=== PATIENT | female | born 1965 | race Caucasian/White ===

== ENCOUNTER 2016-08-23 04:43 | Emergency (ER) | payer MEDICAID ==
[2016-08-23 04:59] VITALS: RESP 16
--- NOTE | 2016-08-23 05:02 | EDPHY ---
H & P Stated Complaint: Abd. pain HPI/ROS: HPI CHIEF COMPLAINT: I think I am having pancreatitis again HISTORY OF PRESENT ILLNESS: This patient is a 50-year-old female she does have significant past medical history for acute on chronic pancreatitis, upper GI bleed, recurrent urinary tract infections, she presents to the emergency room with epigastric abdominal pain that is tender palpation in her mid abdomen. She endorses nausea vomiting. Nonbilious nonbloody. She also tells me that she has had dysuria and urinary frequency she is concerned she may have pancreatitis again as well as a urinary tract infection. It is noted I did see and evaluate this patient in June she was admitted for urinary tract infection and acute on chronic pancreatitis. Past Medical History:Acute on chronic pancreatitis, recurrent urinary tract infection, upper GI bleed Past Surgical History: Cholecystectomy Social History: Denies use of alcohol drugs or tobacco products Family History: noncontributory ROS REVIEW OF SYSTEMS: A comprehensive 10 point review of systems is otherwise negative aside from elements mentioned in the history of present illness. Exam Constitutional triage nursing summary reviewed, vital signs reviewed, awake/ alert. Eyes normal conjunctivae and sclera, EOMI, PERRLA. HENT normal inspection, atraumatic, moist mucus membranes, no epistaxis, neck supple/ no meningismus, no raccoon eyes. Respiratory clear to auscultation bilaterally, normal breath sounds, no respiratory distress, no wheezing. Cardiovascular rate normal, regular rhythm, no murmur, no edema, distal pulses normal. Gastrointestinal soft, mild tenderness palpation epigastric region , no rebound, no guarding, normal bowel sounds, no distension, no pulsatile mass. Genitourinary no CVA tenderness. Musculoskeletal no midline vertebral tenderness, full range of motion, no calf swelling, no tenderness of extremities, no meningismus, good pulses, neurovascularly intact. Skin pink, warm, & dry, no rash, skin atraumatic. Neurologic awake, alert and oriented x 3, AAOx3, moves all 4 extremities equally, motor intact, sensory intact, CN II-XII intact, normal cerebellar, normal vision, normal speech. Psychiatric normal mood/affect. Heme/Lymph/Immune no lymphadenopathy. Differential diagnosis includes but is not limited to and in no particular order : acute on chronic pancreatitis, UTI Bowel obstruction, appendicitis, gallbladder disease, diverticulitis, colitis, enteritis, perforated viscus, gastritis, GERD, esophagitis, , pyelonephritis, kidney stones Medical Decision Making: This patient be placed on a full diagnostic cardiac sonographer, she will have an IV established, she will be hydrated with normal saline 1 L, 4 mg IV Zofran for nausea and 0.5 mg IV Dilaudid for pain control. We will obtain blood work including lipase, liver enzymes, white count. We will also obtain a urinalysis. Re-evaluation: 0640: Re-evaluation at this time this patient is resting comfortably or abdomen remained soft she is not vomiting she states she feels much better after IV fluids and pain medicine. Her blood work has been reviewed her lipase is in the 300 however this is normal for her. Urinalysis does indicate that she has a urinary tract infection. I did send a culture. She received IV Rocephin here and Macrobid for home. She does understand return emergency room if she develops any worsening symptoms questions or concerns includes worsening abdominal pain, fever, vomiting. Source: Patient - Personal History Current Tetanus/Diphtheria Vaccine: Yes Current Tetanus Diphtheria and Acellular Pertussis (TDAP): Yes Tetanus Vaccine Date: 2010 - Medical/Surgical History Hx Asthma: Yes Hx Chronic Respiratory Disease: No Hx Diabetes: No Hx Cardiac Disease: No Hx Renal Disease: No Hx Cirrhosis: No Hx Alcoholism: No Hx HIV/AIDS: No Hx Splenectomy or Spleen Trauma: No Other PMH: UTI, pyelonephritis, left cyst removal (ovary),. panceatitis- second to surgery, bile duct stent history; UGIB; cholecystectomy;GERD. - Social History Smoking Status: Never smoked Constitutional: Initial Vital Signs Temperature (C) 36.3 C 08/23/16 04:57 Heart Rate 76 08/23/16 04:57 Respiratory Rate 16 08/23/16 04:57 Blood Pressure 122/80 H 08/23/16 04:57 O2 Sat (%) 96 08/23/16 04:57 O2 Delivery Mode Room Air Allergies/Adverse Reactions: Penicillins Allergy (Severe, Verified 08/23/16 04:56) Dyspnea Sulfa (Sulfonamide Antibiotics) Allergy (Severe, Verified 08/23/16 04:56) Hives fentanyl Allergy (Intermediate, Verified 08/23/16 04:56) Other-Enter Comments ketorolac tromethamine [From Toradol] Allergy (Intermediate, Verified 08/23/16 04:56) Other-Enter Comments promethazine Allergy (Intermediate, Verified 08/23/16 04:56) Other-Enter Comments Home Medications: Medication Instructions Recorded Pantoprazole Sodium [Protonix 40mg 40 mg PO DAILY 10/08/15 (*)] Estradiol [Estrace Vaginal (*)] 1 tamra VG HS PRN 07/01/16 Lipase/Protease/Amylase [Creon 12 1 cap PO TIDMEAL 07/01/16 (*)] Prazosin HCl [Minipress 1mg (*)] 1 mg PO HS PRN 07/01/16 Sertraline HCl [Zoloft 100mg (*)] 100 mg PO HS PRN 07/01/16 Zolpidem Tartrate [Ambien 5MG (*)] 10 mg PO HS PRN 07/01/16 Nitrofurantoin Monohyd/M-Cryst 100 mg PO BID #10 capsule 07/03/16 [Macrobid 100 mg Capsule] Nitrofurantoin Monohyd/M-Cryst 100 mg PO BID #10 capsule 08/23/16 [Macrobid 100 mg Capsule] Medical Decision Making - Data Points Laboratory Results: Laboratory Results 08/23/16 05:00 08/23/16 05:15 08/23/16 08/23/16 08/23/16 05:15 05:00 04:55 WBC 5.79 10^3/uL (3.80-9.50) RBC 4.74 10^6/uL (4.18-5.33) Hgb 14.2 g/dL (12.6-16.3) Hct 41.8 % (38.0-47.0) MCV 88.2 fL (81.5-99.8) MCH 30.0 pg (27.9-34.1) MCHC 34.0 g/dL (32.4-36.7) RDW 13.0 % (11.5-15.2) Plt Count 265 10^3/uL (150-400) MPV 9.9 fL (8.7-11.7) Neut % (Auto) 56.5 % (39.3-74.2) Lymph % (Auto) 32.5 % (15.0-45.0) [place] % (Auto) 8.6 % (4.5-13.0) Eos % (Auto) 1.2 % (0.6-7.6) Baso % (Auto) 1.0 % (0.3-1.7) Nucleat RBC Rel Count 0.0 % (0.0-0.2) Absolute Neuts (auto) 3.27 10^3/uL (1.70-6.50) Absolute Lymphs (auto) 1.88 10^3/uL (1.00-3.00) Absolute Monos (auto) 0.50 10^3/uL (0.30-0.80) Absolute Eos (auto) 0.07 10^3/uL (0.03-0.40) Absolute Basos (auto) 0.06 10^3/uL (0.02-0.10) Absolute Nucleated RBC 0.00 10^3/uL (0-0.01) Immature Gran % 0.2 % (0.0-1.1) Immature Gran # 0.01 10^3/uL (0.00-0.10) Sodium 146 H mEq/L (134-144) Potassium 4.2 mEq/L (3.5-5.2) Chloride 108 mEq/L (97-110) Carbon Dioxide 24 mEq/l (22-31) Anion Gap 14 mEq/L (8-16) BUN 19 mg/dL (7-23) Creatinine 0.7 mg/dL (0.6-1.0) Estimated GFR > 60 Glucose 72 mg/dL (70-100) Calcium 10.0 mg/dL (8.5-10.4) Total Bilirubin 0.4 mg/dL (0.1-1.4) Conjugated Bilirubin 0.3 mg/dL (0.0-0.5) Unconjugated Bilirubin 0.1 mg/dL (0.0-1.1) AST 27 IU/L (14-46) ALT 37 IU/L (9-52) Alkaline Phosphatase 96 IU/L (38-126) Total Protein 7.4 g/dL (6.3-8.2) Albumin 4.0 g/dL (3.5-5.0) Lipase 334.0 H IU/L (23-300) Urine Color YELLOW Urine Appearance MODERATELY TURBID Urine pH 6.0 (5.0-7.5) Ur Specific [place] 1.025 (1.002-1.030) Urine Protein NEGATIVE (NEGATIVE) Urine Ketones NEGATIVE (NEGATIVE) Urine Blood NEGATIVE (NEGATIVE) Urine Nitrate NEGATIVE (NEGATIVE) Urine Bilirubin NEGATIVE (NEGATIVE) Urine Urobilinogen NEGATIVE EU (0.2-1.0) Ur Leukocyte Esterase 1+ H (NEGATIVE) Urine RBC 3-5 H /hpf (0-3) Urine WBC 5-10 H /hpf (0-3) Ur Epithelial Cells TRACE /lpf (NONE-1+) Calcium Oxalate Crystal PRESENT /hpf (NONE-1+) Urine Bacteria 3+ H /hpf (NONE SEEN) Hyaline Casts 1-5 /lpf (0-1) Urine Mucus 1+ /lpf (NONE-1+) Ur Culture Indicated? INDICATED H (NI) Urine Glucose NEGATIVE (NEGATIVE) Medications Given: Discontinued Medications Hydromorphone HCl (Dilaudid) 0.5 mg IVP EDNOW ONE Stop: 08/23/16 05:06 Last Admin: 08/23/16 05:20 Dose: 0.5 mg Hydromorphone HCl (Dilaudid) 0.5 mg IVP EDNOW ONE Stop: 08/23/16 06:05 Last Admin: 08/23/16 06:00 Dose: 0.5 mg Sodium Chloride (Ns) 1,000 mls @ 0 mls/hr IV ONCE ONE PRN Reason: Wide Open Stop: 08/23/16 05:06 Last Admin: 08/23/16 05:20 Dose: 1,000 mls Sodium Chloride (Ns) 1,000 mls @ 0 mls/hr IV ONCE ONE PRN Reason: Wide Open Stop: 08/23/16 06:29 Last Admin: 08/23/16 06:00 Dose: 1,000 mls Ondansetron HCl (Zofran) 4 mg IVP EDNOW ONE Stop: 08/23/16 05:06 Last Admin: 08/23/16 05:21 Dose: 4 mg Departure - Departure Disposition: Home, Routine, Self-Care Clinical Impression: Abdominal pain Qualifiers: Abdominal location: epigastric Qualifier Code: (R10.13) Epigastric pain UTI (urinary tract infection) Qualifiers: Urinary tract infection type: acute cystitis Hematuria presence: with hematuria Qualifier Code: (N30.01) Acute cystitis with hematuria Condition: Good Instructions: Urinary Tract Infection in Women (ED) Additional Instructions: 1. Stay well-hydrated drink lots of fluids. Do not eat or drink any spicy fatty greasy foods. 2. Return emergency room if he develops any worsening symptoms includes worsening abdominal pain, fever, vomiting. Referrals: NONE *PRIMARY CARE P,. [Primary Care Provider] - As per Instructions Prescriptions: Nitrofurantoin Monohyd/M-Cryst [Macrobid 100 mg Capsule] 100 mg PO BID #10 capsule
[2016-08-23] MEDS ORDERED: ONDANSETRON 4 MG/2 ML VIAL IVP ONE (05:05)
[2016-08-23] MEDS ORDERED: NS 1,000 ML IV ONE ×2 (05:05→06:28)
[2016-08-23] MEDS ORDERED: HYDROmorphONE/DILAUDID 1 MG/ML SYR IVP ONE ×2 (05:05→06:04)
[2016-08-23 05:22] LABS: COLOR YELLOW; LEUKOCYTE ESTERASE,URINE 1+ (NEGATIVE); NITRITE,URINE NEGATIVE (NEGATIVE)
[2016-08-23 05:40] LABS: % IMMATURE GRANULYOCYTES 0.2 % (0.0-1.1); ABSOLUTE IMMATURE GRANULOCYTES 0.01 10^3/uL (0.00-0.10); ADD DIFF? NO; ADD MORPH? NO; ADD SCAN? NO; ATYPICAL LYMPHOCYTE FLAG 10 (0-99); FRAGMENT RBC FLAG 0 (0-99); HEMATOCRIT 41.8 % (38.0-47.0); HEMOGLOBIN 14.2 g/dL (12.6-16.3); LEFT SHIFT FLG 0 (0-99); LIPEMIA HEMOLYSIS FLAG 90 (0-99); MEAN CELL VOLUME 88.2 fL (81.5-99.8); MEAN PLATELET VOLUME 9.9 fL (8.7-11.7); PLATELET CLUMPS FLAG 0 (0-99); PLATELET COUNT 265 10^3/uL (150-400); RED BLOOD CELL COUNT 4.74 10^6/uL (4.18-5.33)
[2016-08-23 05:50] LABS: BACTERIA 3+ /hpf (NONE SEEN); MUCUS 1+ /lpf (NONE-1+)
[2016-08-23 05:54] LABS: ALANINE AMINOTRANSFERASE 37 IU/L (9-52); ALKALINE PHOSPHATASE 96 IU/L (38-126); ANION GAP 14 mEq/L (8-16); ASPARTATE AMINOTRANSFERASE 27 IU/L (14-46); BILIRUBIN,TOTAL 0.4 mg/dL (0.1-1.4); BILIRUBIN-CONJUGATED 0.3 mg/dL (0.0-0.5); BILIRUBIN-UNCONJUGATED 0.1 mg/dL (0.0-1.1); CARBON DIOXIDE 24 mEq/l (22-31); CHLORIDE 108 mEq/L (97-110); CREATININE 0.7 mg/dL (0.6-1.0); GLOMERULAR FILTRATION RATE > 60; GLUCOSE 72 mg/dL (70-100); POTASSIUM 4.2 mEq/L (3.5-5.2); SODIUM 146 mEq/L (134-144); TOTAL PROTEIN 7.4 g/dL (6.3-8.2)
[2016-08-23] MEDS ORDERED: MAALOX/LIDO/HYOSC GI COCKTAIL 55 ML BOTTLE ONE (06:44)
[2016-08-23] MEDS ORDERED: MAALOX/LIDO/HYOSC GI COCKTAIL 55 ML BOTTLE PO ONE (06:46)
[2016-08-23 07:11] VITALS: BP 123/75; PULSE 74; TEMP 97.9; O2SAT 98
== END 2016-08-23 07:11 | disposition home or self-care (01) ==
DX: N30.01 Acute cystitis with hematuria (principal); B96.89 Other specified bacterial agents as the cause of diseases classified elsewhere; J45.909 Unspecified asthma, uncomplicated; Z90.49 Acquired absence of other specified parts of digestive tract
CPT/HCPCS: 96365; J0696; J1170

== ENCOUNTER 2017-02-22 22:03 | Emergency (ER) | payer MEDICAID ==
[2017-02-22 22:08] VITALS: TEMP 97.5
--- NOTE | 2017-02-22 22:10 | EDPHY ---
H & P Stated Complaint: UTI S/S X2 DAYS, PAIN IN ABD NOW, ALSO FLANK PAIN. #2: CAT SCRATCH LEFT EYE HPI/ROS: HPI CHIEF COMPLAINT: Multiple complaints HISTORY OF PRESENT ILLNESS: This patient 51-year-old female, significant past medical history for acute on chronic pancreatitis, recurrent urinary tract infection history of upper GI bleed presents to the emergency room with dysuria urinary frequency, additionally she states that she is having some upper abdominal pain consistent with her chronic pancreatitis. She does endorse nausea with 2 episodes of nonbilious nonbloody vomiting. Additionally she tells me her cat scratched her left upper eyelid at 4:00 a.m. additionally she tells me her tetanus shot is not up-to-date. She does have left upper eyelid swelling and pain due to where the cat scratched her. No globe injury. No trouble with her vision. Past Medical History: Acute on Pancreatitis, urinary tract infection, upper GI bleed Past Surgical History: Cholecystectomy Social History: Denies daily use of drugs alcohol tobacco products. Family History: Noncontributory ROS REVIEW OF SYSTEMS: A comprehensive 10 point review of systems is otherwise negative aside from elements mentioned in the history of present illness. Exam Constitutional triage nursing summary reviewed, vital signs reviewed, awake/ alert. Eyes left upper eyelid: Dry blood present, no globe injury, very mild upper left eyelid swelling. normal conjunctivae and sclera, EOMI, PERRLA. HENT normal inspection, atraumatic, moist mucus membranes, no epistaxis, neck supple/ no meningismus, no raccoon eyes. Respiratory clear to auscultation bilaterally, normal breath sounds, no respiratory distress, no wheezing. Cardiovascular rate normal, regular rhythm, no murmur, no edema, distal pulses normal. Gastrointestinal soft, non-tender, no rebound, no guarding, normal bowel sounds, no distension, no pulsatile mass. Genitourinary no CVA tenderness. Musculoskeletal no midline vertebral tenderness, full range of motion, no calf swelling, no tenderness of extremities, no meningismus, good pulses, neurovascularly intact. Skin pink, warm, & dry, no rash, skin atraumatic. Neurologic awake, alert and oriented x 3, AAOx3, moves all 4 extremities equally, motor intact, sensory intact, CN II-XII intact, normal cerebellar, normal vision, normal speech. Psychiatric normal mood/affect. Heme/Lymph/Immune no lymphadenopathy. Differential Diagnosis: Includes but is not limited to in a particular order acute pancreatitis, urinary tract infection, pyelonephritis, left upper eyelid laceration Medical Decision Making: Plan for this patient IV establishment, blood work, check lipase, urinalysis, IV fluids 0.5 mg IV Dilaudid for pain control, clean the dry blood off of the left upper eyelid. Re-evaluation: 2321: This patient's left upper eyelid was cleaned. She does have a horizontally oriented 3 cm laceration to the upper eyelid. It is not gaping open. It does not involve the lid margin. I do not appreciate dissecting a duct either. This patient need to be started on antibiotics for cat scratch. She will need close ophthalmology follow-up. I have given her strict return precautions about this getting infected this includes worsening swelling, redness, pain, drainage. She understands. Blood work reviewed. No indication of acute pancreatitis. Urinalysis does show leukocyte Estrace. I did send for urine culture. I did give her 1 g of Rocephin. Only reason why I am treating this urinalysis which is minimally infected is that patient says she is dysuria and symptoms. Additionally explained that she needs to follow up with Ophthalmology about the scratch to her left eyelid. Watch the eyelid closely for infection. Start on doxycycline which will hopefully cover her urine as well as her eyelid prevented of care for infection given that the cat scratched her. I am unable to suture this closed because it has been open for over 16 hours. Additionally it is not gaping. Additionally it is a cat scratch. Recommend close follow-up management with Ophthalmology. It is not through and through the eyelid. There is no globe involvement. There is no eyelid age involvement or gland involvement. Source: Patient - Personal History LMP (Females 10-55): Unknown Current Tetanus/Diphtheria Vaccine: Yes Tetanus Vaccine Date: 2010 - Medical/Surgical History Hx Asthma: Yes Hx Chronic Respiratory Disease: No Hx Diabetes: No Hx Cardiac Disease: No Hx Renal Disease: No Hx Cirrhosis: No Hx Alcoholism: No Hx HIV/AIDS: No Hx Splenectomy or Spleen Trauma: No Other PMH: UTI, pyelonephritis, left cyst removal (ovary),. panceatitis- second to surgery, bile duct stent history; UGIB; cholecystectomy;GERD, ? POST MENOPAUSAL. - Social History Smoking Status: Never smoked Constitutional: Initial Vital Signs Temperature (C) 36.4 C 02/22/17 22:04 Heart Rate 100 02/22/17 22:04 Respiratory Rate 20 02/22/17 22:04 Blood Pressure 105/84 H 02/22/17 22:04 O2 Sat (%) 97 02/22/17 22:04 O2 Delivery Mode Room Air Allergies/Adverse Reactions: Penicillins Allergy (Severe, Verified 02/22/17 22:08) Dyspnea Sulfa (Sulfonamide Antibiotics) Allergy (Severe, Verified 02/22/17 22:08) Hives fentanyl Allergy (Intermediate, Verified 02/22/17 22:08) Other-Enter Comments ketorolac tromethamine [From Toradol] Allergy (Intermediate, Verified 02/22/17 22:08) Other-Enter Comments promethazine Allergy (Intermediate, Verified 02/22/17 22:08) Other-Enter Comments Home Medications: Medication Instructions Recorded Sertraline HCl [Zoloft 100mg (*)] 100 mg PO HS PRN 07/01/16 Zolpidem Tartrate [Ambien 5MG (*)] 10 mg PO HS PRN 07/01/16 Doxycycline Hyclate 100 mg PO BID #14 tablet 02/23/17 Medical Decision Making - Data Points Laboratory Results: Laboratory Results 02/22/17 22:35 02/22/17 22:35 02/22/17 02/22/17 02/22/17 23:30 22:35 22:35 WBC 7.17 10^3/uL 10^3/uL (3.80-9.50) RBC 4.91 10^6/uL 10^6/uL (4.18-5.33) Hgb 14.7 g/dL g/dL (12.6-16.3) Hct 44.1 % % (38.0-47.0) MCV 89.8 fL fL (81.5-99.8) MCH 29.9 pg pg (27.9-34.1) MCHC 33.3 g/dL g/dL (32.4-36.7) RDW 13.7 % % (11.5-15.2) Plt Count 284 10^3/uL 10^3/uL (150-400) MPV 9.8 fL fL (8.7-11.7) Neut % (Auto) 62.2 % % (39.3-74.2) Lymph % (Auto) 28.3 % % (15.0-45.0) [place] % (Auto) 7.8 % % (4.5-13.0) Eos % (Auto) 0.8 % % (0.6-7.6) Baso % (Auto) 0.8 % % (0.3-1.7) Nucleat RBC Rel Count 0.0 % % (0.0-0.2) Absolute Neuts (auto) 4.45 10^3/uL 10^3/uL (1.70-6.50) Absolute Lymphs (auto) 2.03 10^3/uL 10^3/uL (1.00-3.00) Absolute Monos (auto) 0.56 10^3/uL 10^3/uL (0.30-0.80) Absolute Eos (auto) 0.06 10^3/uL 10^3/uL (0.03-0.40) Absolute Basos (auto) 0.06 10^3/uL 10^3/uL (0.02-0.10) Absolute Nucleated RBC 0.00 10^3/uL 10^3/uL (0-0.01) Immature Gran % 0.1 % % (0.0-1.1) Immature Gran # 0.01 10^3/uL 10^3/uL (0.00-0.10) Sodium 140 mEq/L mEq/L (134-144) Potassium 4.2 mEq/L mEq/L (3.5-5.2) Chloride 105 mEq/L mEq/L (97-110) Carbon Dioxide 22 mEq/l mEq/l (22-31) Anion Gap 13 mEq/L mEq/L (8-16) BUN 17 mg/dL mg/dL (7-23) Creatinine 0.7 mg/dL mg/dL (0.6-1.0) Estimated GFR > 60 Glucose 99 mg/dL mg/dL (70-100) Calcium 9.8 mg/dL mg/dL (8.5-10.4) Total Bilirubin 0.3 mg/dL mg/dL (0.1-1.4) Conjugated Bilirubin 0.3 mg/dL mg/dL (0.0-0.5) Unconjugated Bilirubin 0.0 mg/dL mg/dL (0.0-1.1) AST 101 IU/L H IU/L (14-46) ALT 106 IU/L H IU/L (9-52) Alkaline Phosphatase 112 IU/L IU/L (38-126) Total Protein 7.1 g/dL g/dL (6.3-8.2) Albumin 4.3 g/dL g/dL (3.5-5.0) Lipase 206.0 IU/L IU/L (23-300) Urine Color YELLOW Urine Appearance CLEAR Urine pH 6.0 (5.0-7.5) Ur Specific [place] 1.015 (1.002-1.030) Urine Protein NEGATIVE (NEGATIVE) Urine Ketones NEGATIVE (NEGATIVE) Urine Blood NEGATIVE (NEGATIVE) Urine Nitrate NEGATIVE (NEGATIVE) Urine Bilirubin NEGATIVE (NEGATIVE) Urine Urobilinogen NEGATIVE EU EU (0.2-1.0) Ur Leukocyte Esterase TRACE H (NEGATIVE) Urine RBC 1-3 /hpf /hpf (0-3) Urine WBC 1-3 /hpf /hpf (0-3) Ur Epithelial Cells TRACE /lpf /lpf (NONE-1+) Urine Mucus TRACE /lpf /lpf (NONE-1+) Urine Glucose NEGATIVE (NEGATIVE) Medications Given: Discontinued Medications Diphtheria/Tetanus/Acell Pertussis (Boostrix) 0.5 ml IM .ONCE ONE Stop: 02/22/17 22:22 Last Admin: 02/22/17 22:35 Dose: 0.5 ml Doxycycline Hyclate (Doxycycline Hyclate) 100 mg PO EDNOW ONE PRN Reason: Protocol Stop: 02/22/17 23:35 Last Admin: 02/23/17 00:19 Dose: 100 mg Hydromorphone HCl (Dilaudid) 0.5 mg IVP EDNOW ONE Stop: 02/22/17 22:21 Last Admin: 02/22/17 22:34 Dose: 0.5 mg Hydromorphone HCl (Dilaudid) 0.5 mg IVP EDNOW ONE Stop: 02/22/17 23:34 Last Admin: 02/22/17 23:43 Dose: 0.5 mg Sodium Chloride (Ns) 1,000 mls @ 0 mls/hr IV EDNOW ONE; Wide Open PRN Reason: Protocol Stop: 02/22/17 22:21 Last Admin: 02/22/17 22:33 Dose: 1,000 mls Ceftriaxone Sodium/Dextrose (Rocephin 1 Gm (Premix)) 50 mls @ 100 mls/hr IV EDNOW ONE PRN Reason: Protocol Stop: 02/23/17 00:23 Last Admin: 02/23/17 00:20 Dose: 50 mls Ondansetron HCl (Zofran) 4 mg IVP EDNOW ONE Stop: 02/22/17 22:21 Last Admin: 02/22/17 22:35 Dose: 4 mg Ondansetron HCl (Zofran) 4 mg IVP EDNOW ONE Stop: 02/22/17 23:34 Last Admin: 02/22/17 23:43 Dose: 4 mg Departure - Departure Disposition: Home, Routine, Self-Care Clinical Impression: Infected eye lid UTI (urinary tract infection) Qualifiers: Urinary tract infection type: acute cystitis Hematuria presence: without hematuria Qualified Code(s): N30.00 - Acute cystitis without hematuria Condition: Good Instructions: Laceration (ED), Cat Scratch Disease (ED), Urinary Tract Infection in Women (ED) Additional Instructions: 1. Please watch her upper eyelid closely for infection this includes worsening swelling, redness, drainage. 2. You should be followed up with Ophthalmology closely about this. Please see them in the next 24 hours. Call them for an appointment. 3. Take antibiotics as prescribed. Referrals: NONE *PRIMARY CARE P,. [Primary Care Provider] - As per Instructions Brittanie Ragland MD [Non Staff Provider ()] - As per Instructions Prescriptions: Doxycycline Hyclate 100 mg PO BID #14 tablet
[2017-02-22] MEDS ORDERED: HYDROmorphONE/DILAUDID 1 MG/ML SYR IVP ONE ×2 (22:20→23:33)
[2017-02-22] MEDS ORDERED: NS 1,000 ML IV ONE (22:20)
[2017-02-22] MEDS ORDERED: ONDANSETRON 4 MG/2 ML VIAL IVP ONE ×2 (22:20→23:33)
[2017-02-22] MEDS ORDERED: TDAP ADULT 0.5 ML INJ (BOOSTRIX) IM ONE (22:21)
[2017-02-22 23:09] LABS: % IMMATURE GRANULYOCYTES 0.1 % (0.0-1.1); ABSOLUTE IMMATURE GRANULOCYTES 0.01 10^3/uL (0.00-0.10); ADD DIFF? NO; ADD MORPH? NO; ADD SCAN? NO; ATYPICAL LYMPHOCYTE FLAG 0 (0-99); FRAGMENT RBC FLAG 0 (0-99); HEMATOCRIT 44.1 % (38.0-47.0); HEMOGLOBIN 14.7 g/dL (12.6-16.3); LEFT SHIFT FLG 0 (0-99); LIPEMIA HEMOLYSIS FLAG 80 (0-99); MEAN CELL HEMOGLOBIN 29.9 pg (27.9-34.1); MEAN CELL HEMOGLOBIN CONCENTR. 33.3 g/dL (32.4-36.7); MEAN CELL VOLUME 89.8 fL (81.5-99.8); MEAN PLATELET VOLUME 9.8 fL (8.7-11.7); PLATELET CLUMPS FLAG 0 (0-99); PLATELET COUNT 284 10^3/uL (150-400); RED BLOOD CELL COUNT 4.91 10^6/uL (4.18-5.33); RED CELL DISTRIBUTION WIDTH 13.7 % (11.5-15.2)
[2017-02-22 23:22] LABS: ALANINE AMINOTRANSFERASE 106 IU/L (9-52); ALBUMIN 4.3 g/dL (3.5-5.0); ALKALINE PHOSPHATASE 112 IU/L (38-126); ANION GAP 13 mEq/L (8-16); ASPARTATE AMINOTRANSFERASE 101 IU/L (14-46); BILIRUBIN,TOTAL 0.3 mg/dL (0.1-1.4); BILIRUBIN-CONJUGATED 0.3 mg/dL (0.0-0.5); CALCIUM 9.8 mg/dL (8.5-10.4); CARBON DIOXIDE 22 mEq/l (22-31); CHLORIDE 105 mEq/L (97-110); CREATININE 0.7 mg/dL (0.6-1.0); GLOMERULAR FILTRATION RATE > 60; GLUCOSE 99 mg/dL (70-100); POTASSIUM 4.2 mEq/L (3.5-5.2); SODIUM 140 mEq/L (134-144); TOTAL PROTEIN 7.1 g/dL (6.3-8.2)
[2017-02-22] MEDS ORDERED: DOXYCYCLINE HYCLATE 100 MG CAP/TAB PO ONE (23:34)
[2017-02-22] MEDS ORDERED: DOXYCYCLINE 100 MG PREPACK#2 BTL TAKEHOME ONE (23:34)
[2017-02-22 23:39] LABS: COLOR YELLOW; LEUKOCYTE ESTERASE,URINE TRACE (NEGATIVE); NITRITE,URINE NEGATIVE (NEGATIVE)
[2017-02-22 23:48] LABS: MUCUS TRACE /lpf (NONE-1+)
[2017-02-23 00:52] VITALS: BP 124/87; PULSE 86; RESP 16; O2SAT 94
== END 2017-02-23 01:05 | disposition home or self-care (01) ==
DX: H01.9 Unspecified inflammation of eyelid (principal); N30.00 Acute cystitis without hematuria; B96.89 Other specified bacterial agents as the cause of diseases classified elsewhere; J45.909 Unspecified asthma, uncomplicated; E86.9 Volume depletion, unspecified; Z23 Encounter for immunization; W55.03XA Scratched by cat, initial encounter
CPT/HCPCS: 96365; J0696; J1170; J2405

== ENCOUNTER 2017-05-07 21:47 | Emergency (ER) | payer MEDICAID ==
[2017-05-07] MEDS ORDERED: NS 1,000 ML IV ONE (22:04)
--- NOTE | 2017-05-07 22:04 | EDPHY ---
H & P Stated Complaint: abd pain, painful urination, back pain HPI/ROS: HPI CHIEF COMPLAINT: Abdominal pain, dysuria HISTORY OF PRESENT ILLNESS: Patient very pleasant 51-year-old female she has significant past medical history for chronic pancreatitis, chronic urinary tract infections and chronic abdominal pain she presents emergency room with dysuria. States x1 day. With associated nausea vomiting. Upper epigastric abdominal pain. She denies any chest pain shortness of breath or fever. States she decided come the emergency room if she thinks she may be having a urinary tract infection or pancreatitis. Past Medical History: Urinary tract infection, pancreatitis Past Surgical History: Cholecystectomy Social History: Denies daily use drugs alcohol tobacco products. Family History: Noncontributory ROS REVIEW OF SYSTEMS: A comprehensive 10 point review of systems is otherwise negative aside from elements mentioned in the history of present illness. Exam Constitutional appears well nontoxic, triage nursing summary reviewed, vital signs reviewed, awake/alert. Eyes normal conjunctivae and sclera, EOMI, PERRLA. HENT normal inspection, atraumatic, moist mucus membranes, no epistaxis, neck supple/ no meningismus, no raccoon eyes. Respiratory clear to auscultation bilaterally, normal breath sounds, no respiratory distress, no wheezing. Cardiovascular rate normal, regular rhythm, no murmur, no edema, distal pulses normal. Gastrointestinal soft, very mild tenderness palpation epigastric , no rebound , no guarding, normal bowel sounds, no distension, no pulsatile mass. Genitourinary no CVA tenderness. Musculoskeletal no midline vertebral tenderness, full range of motion, no calf swelling, no tenderness of extremities, no meningismus, good pulses, neurovascularly intact. Skin pink, warm, & dry, no rash, skin atraumatic. Neurologic awake, alert and oriented x 3, AAOx3, moves all 4 extremities equally, motor intact, sensory intact, CN II-XII intact, normal cerebellar, normal vision, normal speech. Psychiatric normal mood/affect. Heme/Lymph/Immune no lymphadenopathy. Differential diagnosis includes but is not limited to and in no particular order : Bowel obstruction, appendicitis, gallbladder disease, diverticulitis, colitis , enteritis, perforated viscus, gastritis, GERD, esophagitis, urinary tract infection, pyelonephritis, kidney stones Medical Decision Making: Plan for this patient IV established with IV fluid bolus, Zofran for nausea, 1 mg for Dilaudid pain control, check lipase, check LFTs, check urinalysis and re-evaluate. Re-evaluation: 2257: Re-evaluation at this time. Resting comfortably no acute distress. Abdomen soft. Not vomiting. Blood work is reassuring. Normal lipase. UA unremarkable. She feels comfortable going home. I did give her return precautions she understands return emergency room if develops worsening abdominal pain fever vomiting. Clinically on exam her abdomen is soft nontender no guarding or peritoneal signs. Source: Patient - Personal History LMP (Females 10-55): Post Menopausal Tetanus Vaccine Date: 2016 - Medical/Surgical History Hx Asthma: Yes Hx Chronic Respiratory Disease: No Hx Diabetes: No Hx Cardiac Disease: No Hx Renal Disease: No Hx Cirrhosis: No Hx Alcoholism: No Hx HIV/AIDS: No Hx Splenectomy or Spleen Trauma: No Other PMH: UTI, pyelonephritis, left cyst removal (ovary),. panceatitis- second to surgery, bile duct stent history; UGIB; cholecystectomy;GERD, ? POST MENOPAUSAL. - Social History Smoking Status: Never smoked Constitutional: Initial Vital Signs Heart Rate 90 05/07/17 21:52 Respiratory Rate 20 05/07/17 21:52 Blood Pressure 118/71 05/07/17 21:52 O2 Sat (%) 98 05/07/17 21:52 O2 Delivery Mode Room Air O2 (L/minute) 2 Allergies/Adverse Reactions: Penicillins Allergy (Severe, Verified 05/07/17 21:52) Dyspnea Sulfa (Sulfonamide Antibiotics) Allergy (Severe, Verified 05/07/17 21:52) Hives fentanyl Allergy (Intermediate, Verified 05/07/17 21:52) Other-Enter Comments ketorolac tromethamine [From Toradol] Allergy (Intermediate, Verified 05/07/17 21:52) Other-Enter Comments promethazine Allergy (Intermediate, Verified 05/07/17 21:52) Other-Enter Comments Home Medications: Medication Instructions Recorded Sertraline HCl [Zoloft 100mg (*)] 100 mg PO HS PRN 07/01/16 Zolpidem Tartrate [Ambien 5MG (*)] 10 mg PO HS PRN 07/01/16 Doxycycline Hyclate 100 mg PO BID #14 tablet 02/23/17 Medical Decision Making - Data Points Laboratory Results: Laboratory Results 05/07/17 22:10 10/20/17 22:10 05/07/17 05/07/17 05/07/17 22:10 22:10 21:50 WBC 6.19 10^3/uL 10^3/uL (3.80-9.50) RBC 4.70 10^6/uL 10^6/uL (4.18-5.33) Hgb 13.9 g/dL g/dL (12.6-16.3) Hct 41.5 % % (38.0-47.0) MCV 88.3 fL fL (81.5-99.8) MCH 29.6 pg pg (27.9-34.1) MCHC 33.5 g/dL g/dL (32.4-36.7) RDW 12.9 % % (11.5-15.2) Plt Count 251 10^3/uL 10^3/uL (150-400) MPV 9.7 fL fL (8.7-11.7) Neut % (Auto) 55.9 % % (39.3-74.2) Lymph % (Auto) 34.7 % % (15.0-45.0) [place] % (Auto) 6.9 % % (4.5-13.0) Eos % (Auto) 1.3 % % (0.6-7.6) Baso % (Auto) 1.0 % % (0.3-1.7) Nucleat RBC Rel Count 0.0 % % (0.0-0.2) Absolute Neuts (auto) 3.46 10^3/uL 10^3/uL (1.70-6.50) Absolute Lymphs (auto) 2.15 10^3/uL 10^3/uL (1.00-3.00) Absolute Monos (auto) 0.43 10^3/uL 10^3/uL (0.30-0.80) Absolute Eos (auto) 0.08 10^3/uL 10^3/uL (0.03-0.40) Absolute Basos (auto) 0.06 10^3/uL 10^3/uL (0.02-0.10) Absolute Nucleated RBC 0.00 10^3/uL 10^3/uL (0-0.01) Immature Gran % 0.2 % % (0.0-1.1) Immature Gran # 0.01 10^3/uL 10^3/uL (0.00-0.10) Sodium 143 mEq/L mEq/L (134-144) Potassium 4.5 mEq/L mEq/L (3.5-5.2) Chloride 105 mEq/L mEq/L (97-110) Carbon Dioxide 21 mEq/l L mEq/l (22-31) Anion Gap 17 mEq/L H mEq/L (8-16) BUN 23 mg/dL mg/dL (7-23) Creatinine 0.7 mg/dL mg/dL (0.6-1.0) Estimated GFR > 60 Glucose 118 mg/dL H mg/dL (70-100) Calcium 9.6 mg/dL mg/dL (8.5-10.4) Total Bilirubin 0.4 mg/dL mg/dL (0.1-1.4) Conjugated Bilirubin 0.3 mg/dL mg/dL (0.0-0.5) Unconjugated Bilirubin 0.1 mg/dL mg/dL (0.0-1.1) AST 27 IU/L IU/L (14-46) ALT 22 IU/L IU/L (9-52) Alkaline Phosphatase 82 IU/L IU/L (38-126) Total Protein 6.6 g/dL g/dL (6.3-8.2) Albumin 3.9 g/dL g/dL (3.5-5.0) Lipase 283 IU/L IU/L (23-300) Urine Color YELLOW Urine Appearance CLEAR Urine pH 5.0 (5.0-7.5) Ur Specific [place] 1.024 (1.002-1.030) Urine Protein NEGATIVE (NEGATIVE) Urine Ketones NEGATIVE (NEGATIVE) Urine Blood NEGATIVE (NEGATIVE) Urine Nitrate NEGATIVE (NEGATIVE) Urine Bilirubin NEGATIVE (NEGATIVE) Urine Urobilinogen NEGATIVE EU EU (0.2-1.0) Ur Leukocyte Esterase NEGATIVE (NEGATIVE) Urine Glucose NEGATIVE (NEGATIVE) Medications Given: Hydromorphone HCl (Dilaudid) 1 mg IVP Q4HRS PRN PRN Reason: Pain, Severe Unable to Take PO Stop: 05/17/17 22:08 Last Admin: 05/07/17 22:15 Dose: 1 mg Discontinued Medications Sodium Chloride (Ns) 1,000 mls @ 0 mls/hr IV EDNOW ONE; Wide Open PRN Reason: Protocol Stop: 05/07/17 22:05 Last Admin: 05/07/17 22:14 Dose: 1,000 mls Ondansetron HCl (Zofran) 4 mg IVP EDNOW ONE Stop: 05/07/17 22:16 Last Admin: 05/07/17 22:16 Dose: 4 mg Departure - Departure Disposition: Home, Routine, Self-Care Clinical Impression: Abdominal pain Condition: Good Instructions: Acute Abdominal Pain (ED) Additional Instructions: 1. Return emergency room if develops worsening abdominal pain fever vomiting. 2. Cherry diet next 24-48 hours. 3. Return emergency room if worsening symptoms questions or concerns. Referrals: NONE *PRIMARY CARE P,. [Primary Care Provider] - As per Instructions
[2017-05-07] MEDS ORDERED: HYDROmorphONE/DILAUDID 1 MG/ML INJ IVP PRN (22:09)
[2017-05-07 22:12] LABS: COLOR YELLOW; LEUKOCYTE ESTERASE,URINE NEGATIVE (NEGATIVE); NITRITE,URINE NEGATIVE (NEGATIVE)
[2017-05-07] MEDS ORDERED: ONDANSETRON 4 MG/2 ML VIAL ONE (22:12)
[2017-05-07] MEDS ORDERED: ONDANSETRON 4 MG/2 ML VIAL IVP ONE (22:15)
[2017-05-07 22:20] VITALS: O2SAT 97
[2017-05-07 22:22] LABS: % IMMATURE GRANULYOCYTES 0.2 % (0.0-1.1); ABSOLUTE IMMATURE GRANULOCYTES 0.01 10^3/uL (0.00-0.10); ADD DIFF? NO; ADD MORPH? NO; ADD SCAN? NO; ATYPICAL LYMPHOCYTE FLAG 10 (0-99); FRAGMENT RBC FLAG 0 (0-99); HEMATOCRIT 41.5 % (38.0-47.0); HEMOGLOBIN 13.9 g/dL (12.6-16.3); LEFT SHIFT FLG 0 (0-99); LIPEMIA HEMOLYSIS FLAG 80 (0-99); MEAN CELL HEMOGLOBIN 29.6 pg (27.9-34.1); MEAN CELL HEMOGLOBIN CONCENTR. 33.5 g/dL (32.4-36.7); MEAN CELL VOLUME 88.3 fL (81.5-99.8); MEAN PLATELET VOLUME 9.7 fL (8.7-11.7); PLATELET CLUMPS FLAG 30 (0-99); PLATELET COUNT 251 10^3/uL (150-400); RED CELL DISTRIBUTION WIDTH 12.9 % (11.5-15.2)
[2017-05-07 22:41] LABS: ALANINE AMINOTRANSFERASE 22 IU/L (9-52); ALBUMIN 3.9 g/dL (3.5-5.0); ALKALINE PHOSPHATASE 82 IU/L (38-126); ANION GAP 17 mEq/L (8-16); ASPARTATE AMINOTRANSFERASE 27 IU/L (14-46); BILIRUBIN,TOTAL 0.4 mg/dL (0.1-1.4); BILIRUBIN-CONJUGATED 0.3 mg/dL (0.0-0.5); BILIRUBIN-UNCONJUGATED 0.1 mg/dL (0.0-1.1); CALCIUM 9.6 mg/dL (8.5-10.4); CARBON DIOXIDE 21 mEq/l (22-31); CHLORIDE 105 mEq/L (97-110); CREATININE 0.7 mg/dL (0.6-1.0); GLOMERULAR FILTRATION RATE > 60; GLUCOSE 118 mg/dL (70-100); POTASSIUM 4.5 mEq/L (3.5-5.2); SODIUM 143 mEq/L (134-144); TOTAL PROTEIN 6.6 g/dL (6.3-8.2)
[2017-05-07 23:05] VITALS: BP 127/72; PULSE 78; RESP 16; TEMP 98.1
== END 2017-05-07 23:05 | disposition home or self-care (01) ==
DX: R10.13 Epigastric pain (principal); J45.909 Unspecified asthma, uncomplicated; E86.9 Volume depletion, unspecified; Z90.49 Acquired absence of other specified parts of digestive tract
CPT/HCPCS: 96374; J1170; J2405

== ENCOUNTER 2017-06-20 23:24 | Emergency (ER) | payer MEDICAID ==
[2017-06-20] MEDS ORDERED: NS 1,000 ML IV ONE (23:59)
[2017-06-20] MEDS ORDERED: ONDANSETRON 4 MG/2 ML VIAL IVP ONE (23:59)
[2017-06-20] MEDS ORDERED: FAMOTIDINE 20 MG/NACL 50 ML IV ONE (23:59)
[2017-06-21] MEDS ORDERED: ONDANSETRON 4 MG/2 ML VIAL ONE
[2017-06-21] MEDS ORDERED: HYDROmorphONE/DILAUDID 1 MG/ML INJ IVP ONE
--- NOTE | 2017-06-21 00:04 | EDPHY ---
H & P Time Seen by Provider: 06/20/17 23:41 HPI/ROS: HPI Abdominal pain, flank pain, vomiting. 51-year-old female by private vehicle. She has been seen in our emergency department multiple times in the past for the same above complaints. She states that for the last 2 days she has had left upper to mid abdominal pain described as crampy with radiation to the left flank. She denies any pain with urination. No gross hematuria. No increased frequency or dysuria. She has not had a fever. She reports that she has had this same pain multiple times in the past. She reports having a history of pancreatitis and urinary tract infections. She reports she has been vomiting today but has been able to keep some liquids down this evening. ROS: Constitutional: No fever, no chills. No weakness. Eyes: No discharge. No changes in vision. ENT: No sore throat. No nasal congestion or rhinorrhea. Respiratory: No cough. No shortness of breath. Cardiac: No chest pain, no palpitations. Gastrointestinal: As above, no diarrhea. Genitourinary: No hematuria. No dysuria or increased frequency with urination. Musculoskeletal: As above. No neck pain. No myalgias or arthralgias. Skin: No rashes. Neurological: No headache. No focal weakness or altered sensation. Past medical history: Upper GI bleed, pancreatitis, cholecystectomy, frequent urinary tract infections. Social history: Here by herself. Denies alcohol. Denies smoking. No IV drugs or street drugs. Physical Exam: General Appearance: Alert, she does not appear to be in distress. This patient is responding to questions appropriately and in full sentences. This patient appears well-hydrated and well-nourished. Eyes: Pupils equal and round no pallor or injection. No lid edema, erythema or injection. ENT, Mouth: Mucous membranes are moist. The pharyngeal tissues are unremarkable. No edema or swelling. No asymmetry suggestive of abscess. No erythema or exudates. Respiratory: There are no retractions, lungs are clear to auscultation with good air movement bilaterally. Cardiovascular: Regular rate and rhythm. No murmur. Gastrointestinal: Abdomen is soft with vague and mild epigastric and left upper quadrant tenderness on palpation, no masses, bowel sounds normal. No focal tenderness at McBurney's point. No Marie sign. Neurological: Motor sensory function is grossly intact. Cranial nerves are normal. Gait is normal. Skin: Warm and dry, no rashes. Musculoskeletal: No CVA tenderness on palpation bilaterally. Extremities are symmetrical. All joints range without pain or impingement. Psychiatric: No agitation. No depression. Database: EKG: Imaging: Procedures: Emergency department course: Vital signs reviewed. IV placed. She was started on IV normal saline with 1 L to be given over the next hour. She has provided us with a urine sample. She will be given 4 mg of IV Zofran and 20 mg of IV Pepcid as well as 0.5 mg of IV hydromorphone for her pain. 1:15 a.m., patient re-evaluated. Resting comfortably at this time. She states that she feels much better. Her vital signs were reviewed and are normal. Repeat abdominal exam she is soft, nontender nondistended. No significant CVA tenderness on palpation. I discussed the results of her urinalysis and blood work with her. She is taking oral fluids. She has a few red blood cells on her urinalysis but no indication of infection. I will not start antibiotics at this time. She will follow up with her primary care physician in 1-2 days for re-evaluation and repeat urinalysis. Return to emergency department precautions have been discussed with her. All of her questions were answered. She was discharged in good condition. Differential Diagnosis: The differential diagnosis on this patient includes but is not limited to chronic abdominal pain, cyclic vomiting syndrome, urinary tract infection. Perforated peptic ulcer, pancreatitis, cholecystitis, pyelonephritis unlikely. This represents a partial list of diagnoses considered. These considerations are based on history, physical exam, past history, reassessment and diagnostic testing. Smoking Status: Never smoked Constitutional: Initial Vital Signs Temperature (C) 37.0 C 06/20/17 23:36 Heart Rate 104 H 06/20/17 23:36 Respiratory Rate 14 06/20/17 23:36 Blood Pressure 97/71 L 06/20/17 23:36 O2 Sat (%) 97 06/20/17 23:36 O2 Delivery Mode Room Air Allergies/Adverse Reactions: Penicillins Allergy (Severe, Verified 05/07/17 21:52) Dyspnea Sulfa (Sulfonamide Antibiotics) Allergy (Severe, Verified 05/07/17 21:52) Hives fentanyl Allergy (Intermediate, Verified 05/07/17 21:52) Other-Enter Comments ketorolac tromethamine [From Toradol] Allergy (Intermediate, Verified 05/07/17 21:52) Other-Enter Comments promethazine Allergy (Intermediate, Verified 05/07/17 21:52) Other-Enter Comments Home Medications: Medication Instructions Recorded Zolpidem Tartrate [Ambien 5MG (*)] 10 mg PO HS PRN 07/01/16 Ondansetron Odt [Zofran Odt 4 mg 4 mg PO Q4PRN PRN #10 tab 06/21/17 (*)] Medical Decision Making - Data Points Laboratory Results: Laboratory Results 06/21/17 00:20 06/21/17 00:20 06/21/17 06/21/17 06/21/17 00:20 00:20 00:20 WBC 5.35 10^3/uL 10^3/uL (3.80-9.50) RBC 4.33 10^6/uL 10^6/uL (4.18-5.33) Hgb 13.0 g/dL g/dL (12.6-16.3) Hct 38.0 % % (38.0-47.0) MCV 87.8 fL fL (81.5-99.8) MCH 30.0 pg pg (27.9-34.1) MCHC 34.2 g/dL g/dL (32.4-36.7) RDW 13.2 % % (11.5-15.2) Plt Count 250 10^3/uL 10^3/uL (150-400) MPV 9.9 fL fL (8.7-11.7) Neut % (Auto) 57.0 % % (39.3-74.2) Lymph % (Auto) 31.6 % % (15.0-45.0) [place] % (Auto) 8.6 % % (4.5-13.0) Eos % (Auto) 1.9 % % (0.6-7.6) Baso % (Auto) 0.7 % % (0.3-1.7) Nucleat RBC Rel Count 0.0 % % (0.0-0.2) Absolute Neuts (auto) 3.05 10^3/uL 10^3/uL (1.70-6.50) Absolute Lymphs (auto) 1.69 10^3/uL 10^3/uL (1.00-3.00) Absolute Monos (auto) 0.46 10^3/uL 10^3/uL (0.30-0.80) Absolute Eos (auto) 0.10 10^3/uL 10^3/uL (0.03-0.40) Absolute Basos (auto) 0.04 10^3/uL 10^3/uL (0.02-0.10) Absolute Nucleated RBC 0.00 10^3/uL 10^3/uL (0-0.01) Immature Gran % 0.2 % % (0.0-1.1) Immature Gran # 0.01 10^3/uL 10^3/uL (0.00-0.10) Sodium 145 mEq/L H mEq/L (134-144) Potassium 4.0 mEq/L mEq/L (3.5-5.2) Chloride 107 mEq/L mEq/L (97-110) Carbon Dioxide 24 mEq/l mEq/l (22-31) Anion Gap 14 mEq/L mEq/L (8-16) BUN 23 mg/dL mg/dL (7-23) Creatinine 0.8 mg/dL mg/dL (0.6-1.0) Estimated GFR > 60 Glucose 111 mg/dL H mg/dL (70-100) Calcium 9.2 mg/dL mg/dL (8.5-10.4) Total Bilirubin 0.2 mg/dL mg/dL (0.1-1.4) Conjugated Bilirubin 0.2 mg/dL mg/dL (0.0-0.5) Unconjugated Bilirubin 0.0 mg/dL mg/dL (0.0-1.1) AST 23 IU/L IU/L (14-46) ALT 26 IU/L IU/L (9-52) Alkaline Phosphatase 76 IU/L IU/L (38-126) Total Protein 6.5 g/dL g/dL (6.3-8.2) Albumin 3.8 g/dL g/dL (3.5-5.0) Lipase 326 IU/L H IU/L (23-300) Beta HCG, Qual NEGATIVE Urine Color Urine Appearance Urine pH Ur Specific [place] Urine Protein Urine Ketones Urine Blood Urine Nitrate Urine Bilirubin Urine Urobilinogen Ur Leukocyte Esterase Urine RBC Urine WBC Ur Epithelial Cells Calcium Oxalate Crystal Urine Bacteria Urine Mucus Urine Glucose 06/21/17 00:00 WBC RBC Hgb Hct MCV MCH MCHC RDW Plt Count MPV Neut % (Auto) Lymph % (Auto) [place] % (Auto) Eos % (Auto) Baso % (Auto) Nucleat RBC Rel Count Absolute Neuts (auto) Absolute Lymphs (auto) Absolute Monos (auto) Absolute Eos (auto) Absolute Basos (auto) Absolute Nucleated RBC Immature Gran % Immature Gran # Sodium Potassium Chloride Carbon Dioxide Anion Gap BUN Creatinine Estimated GFR Glucose Calcium Total Bilirubin Conjugated Bilirubin Unconjugated Bilirubin AST ALT Alkaline Phosphatase Total Protein Albumin Lipase Beta HCG, Qual Urine Color RED Urine Appearance MODERATELY TURBID Urine pH 7.0 (5.0-7.5) Ur Specific [place] 1.016 (1.002-1.030) Urine Protein NEGATIVE (NEGATIVE) Urine Ketones NEGATIVE (NEGATIVE) Urine Blood NEGATIVE (NEGATIVE) Urine Nitrate NEGATIVE (NEGATIVE) Urine Bilirubin NEGATIVE (NEGATIVE) Urine Urobilinogen NEGATIVE EU EU (0.2-1.0) Ur Leukocyte Esterase NEGATIVE (NEGATIVE) Urine RBC 3-5 /hpf H /hpf (0-3) Urine WBC 1-3 /hpf /hpf (0-3) Ur Epithelial Cells Not Reported Calcium Oxalate Crystal PRESENT /hpf /hpf (NONE-1+) Urine Bacteria 4+ /hpf H /hpf (NONE SEEN) Urine Mucus TRACE /lpf /lpf (NONE-1+) Urine Glucose NEGATIVE (NEGATIVE) Medications Given: Discontinued Medications Hydromorphone HCl (Dilaudid) 0.5 mg IVP EDNOW ONE Stop: 06/21/17 00:01 Last Admin: 06/21/17 00:20 Dose: 0.5 mg Sodium Chloride (Ns) 1,000 mls @ 0 mls/hr IV EDNOW ONE; Wide Open PRN Reason: Protocol Stop: 06/21/17 00:00 Last Admin: 06/21/17 00:15 Dose: 1,000 mls Famotidine/Sodium Chloride (Pepcid 20 Mg (Premix)) 50 mls @ 200 mls/hr IV EDNOW ONE Stop: 06/21/17 00:13 Last Admin: 06/21/17 00:20 Dose: 50 mls Ondansetron HCl (Zofran) 4 mg IVP EDNOW ONE Stop: 06/21/17 00:00 Last Admin: 06/21/17 00:15 Dose: 4 mg Ondansetron HCl (Zofran) 4 mg IVP EDNOW ONE Stop: 06/21/17 01:03 Last Admin: 06/21/17 01:06 Dose: 4 mg Departure - Departure Disposition: Home, Routine, Self-Care Clinical Impression: Abdominal pain, Vomiting Condition: Good Instructions: Acute Nausea and Vomiting (ED), Abdominal Pain (ED) Additional Instructions: Read and follow provided instructions. Follow-up with your primary care physician in 1-2 days for re-evaluation as discussed. You should have your urinalysis repeated at this time. Return to the emergency department for worsening symptoms, worsening pain, vomiting and inability to keep fluids down despite medications, fever, back pain or other serious concerns. Referrals: NONE *PRIMARY CARE P,. [Primary Care Provider] - As per Instructions Prescriptions: Ondansetron Odt [Zofran Odt 4 mg (*)] 4 mg PO Q4PRN PRN #10 tab PRN Reason: For Nausea & Vomiting
[2017-06-21 00:14] LABS: COLOR RED; LEUKOCYTE ESTERASE,URINE NEGATIVE (NEGATIVE); NITRITE,URINE NEGATIVE (NEGATIVE)
[2017-06-21 00:25] LABS: BACTERIA 4+ /hpf (NONE SEEN); MUCUS TRACE /lpf (NONE-1+)
[2017-06-21 00:34] LABS: % IMMATURE GRANULYOCYTES 0.2 % (0.0-1.1); ABSOLUTE IMMATURE GRANULOCYTES 0.01 10^3/uL (0.00-0.10); ADD DIFF? NO; ADD MORPH? NO; ADD SCAN? NO; ATYPICAL LYMPHOCYTE FLAG 10 (0-99); FRAGMENT RBC FLAG 0 (0-99); LEFT SHIFT FLG 0 (0-99); LIPEMIA HEMOLYSIS FLAG 90 (0-99); MEAN CELL HEMOGLOBIN CONCENTR. 34.2 g/dL (32.4-36.7); MEAN CELL VOLUME 87.8 fL (81.5-99.8); MEAN PLATELET VOLUME 9.9 fL (8.7-11.7); PLATELET CLUMPS FLAG 10 (0-99); PLATELET COUNT 250 10^3/uL (150-400); RED BLOOD CELL COUNT 4.33 10^6/uL (4.18-5.33); RED CELL DISTRIBUTION WIDTH 13.2 % (11.5-15.2)
[2017-06-21 00:40] LABS: ALANINE AMINOTRANSFERASE 26 IU/L (9-52); ALBUMIN 3.8 g/dL (3.5-5.0); ALKALINE PHOSPHATASE 76 IU/L (38-126); ANION GAP 14 mEq/L (8-16); ASPARTATE AMINOTRANSFERASE 23 IU/L (14-46); BILIRUBIN,TOTAL 0.2 mg/dL (0.1-1.4); BILIRUBIN-CONJUGATED 0.2 mg/dL (0.0-0.5); CALCIUM 9.2 mg/dL (8.5-10.4); CARBON DIOXIDE 24 mEq/l (22-31); CHLORIDE 107 mEq/L (97-110); CREATININE 0.8 mg/dL (0.6-1.0); GLOMERULAR FILTRATION RATE > 60; GLUCOSE 111 mg/dL (70-100); SODIUM 145 mEq/L (134-144); TOTAL PROTEIN 6.5 g/dL (6.3-8.2)
[2017-06-21] MEDS ORDERED: ONDANSETRON 4 MG/2 ML VIAL IVP ONE (01:02)
[2017-06-21 01:36] VITALS: BP 115/76; PULSE 96; RESP 18; TEMP 98.6; O2SAT 96
== END 2017-06-21 01:35 | disposition home or self-care (01) ==
DX: R10.13 Epigastric pain (principal); R10.12 Left upper quadrant pain; R11.10 Vomiting, unspecified; E86.9 Volume depletion, unspecified; Z90.49 Acquired absence of other specified parts of digestive tract
CPT/HCPCS: 96365; J1170; J2405

== ENCOUNTER 2017-06-26 22:59 | Emergency (ER) | payer MEDICAID ==
--- NOTE | 2017-06-26 23:27 | EDPHY ---
H & P Stated Complaint: N/v painful urination HPI/ROS: HPI CHIEF COMPLAINT: Nausea, vomiting, UTI HISTORY OF PRESENT ILLNESS: This patient very pleasant 51-year-old female, in very familiar with, she presents emergency room with nausea vomiting and dysuria. She also states that she thinks that her pancreas is acting up. She states that this started earlier today. She has had 2 episodes of vomiting. She denies any chest pain or shortness of breath. Her pain is located bilateral CVA is worse on the left. Distally she complains that "her pancreas is hurting her" Past Medical History: Chronic abdominal pain, chronic pancreatitis, chronic UTI Past Surgical History: No recent surgery. Social History: Lives locally. Denies drugs alcohol tobacco. Family History: Noncontributory. ROS REVIEW OF SYSTEMS: A comprehensive 10 point review of systems is otherwise negative aside from elements mentioned in the history of present illness. Exam Constitutional appears well nontoxic triage nursing summary reviewed, vital signs reviewed, awake/alert. Eyes normal conjunctivae and sclera, EOMI, PERRLA. HENT normal inspection, atraumatic, moist mucus membranes, no epistaxis, neck supple/ no meningismus, no raccoon eyes. Respiratory clear to auscultation bilaterally, normal breath sounds, no respiratory distress, no wheezing. Cardiovascular rate normal, regular rhythm, no murmur, no edema, distal pulses normal. Gastrointestinal no significant tenderness on abdominal exam, soft, non-tender , no rebound, no guarding, normal bowel sounds, no distension, no pulsatile mass. Genitourinary no CVA tenderness. Musculoskeletal no midline vertebral tenderness, full range of motion, no calf swelling, no tenderness of extremities, no meningismus, good pulses, neurovascularly intact. Skin pink, warm, & dry, no rash, skin atraumatic. Neurologic awake, alert and oriented x 3, AAOx3, moves all 4 extremities equally, motor intact, sensory intact, CN II-XII intact, normal cerebellar, normal vision, normal speech. Psychiatric normal mood/affect. Heme/Lymph/Immune no lymphadenopathy. Differential Diagnosis: Includes but is not limited to in a particular order, chronic abdominal pain, chronic pancreatitis, UTI, electrolyte disturbance, dehydration Medical Decision Making: Plan for this patient IV establishment IV fluid bolus , 1 mg IV Dilaudid for pain control 4 mg IV Zofran for nausea check basic blood work including lipase. Check UA. Re-evaluation: 1220: Re-examination at this time. Patient resting comfortably abdomen remained soft nontender she is not vomiting. Blood work has been reviewed as well as urinalysis. Lipase is normal. Urinalysis does not indicate infection. She has me if she should continue taking her antibiotics. I explained that she should. Additionally gave her return precautions. She understands return emergency room she develops worsening abdominal pain fever vomiting. Source: Patient - Personal History LMP (Females 10-55): Post Menopausal Current Tetanus/Diphtheria Vaccine: Yes Current Tetanus Diphtheria and Acellular Pertussis (TDAP): Yes Tetanus Vaccine Date: 2016 - Medical/Surgical History Hx Asthma: Yes Hx Chronic Respiratory Disease: No Hx Diabetes: No Hx Cardiac Disease: No Hx Renal Disease: No Hx Cirrhosis: No Hx Alcoholism: No Hx HIV/AIDS: No Hx Splenectomy or Spleen Trauma: No Other PMH: UTI, pyelonephritis, left cyst removal (ovary),. panceatitis- second to surgery, bile duct stent history; UGIB; cholecystectomy;GERD, ? POST MENOPAUSAL. - Social History Smoking Status: Never smoked Constitutional: Initial Vital Signs Temperature (C) 36.6 C 06/26/17 23:01 Heart Rate 95 06/26/17 23:01 Respiratory Rate 16 06/26/17 23:01 Blood Pressure 119/71 06/26/17 23:01 O2 Sat (%) 97 06/26/17 23:01 O2 Delivery Mode Room Air Allergies/Adverse Reactions: Penicillins Allergy (Severe, Verified 05/07/17 21:52) Dyspnea Sulfa (Sulfonamide Antibiotics) Allergy (Severe, Verified 05/07/17 21:52) Hives fentanyl Allergy (Intermediate, Verified 05/07/17 21:52) Other-Enter Comments ketorolac tromethamine [From Toradol] Allergy (Intermediate, Verified 05/07/17 21:52) Other-Enter Comments promethazine Allergy (Intermediate, Verified 05/07/17 21:52) Other-Enter Comments Home Medications: Medication Instructions Recorded Zolpidem Tartrate [Ambien 5MG (*)] 10 mg PO HS PRN 07/01/16 Ondansetron Odt [Zofran Odt 4 mg 4 mg PO Q4PRN PRN #10 tab 06/21/17 (*)] Medical Decision Making - Data Points Laboratory Results: Laboratory Results 06/26/17 23:45 06/26/17 23:45 06/26/17 06/26/17 06/26/17 23:45 23:45 23:21 WBC 6.15 10^3/uL 10^3/uL (3.80-9.50) RBC 4.37 10^6/uL 10^6/uL (4.18-5.33) Hgb 13.0 g/dL g/dL (12.6-16.3) Hct 38.6 % % (38.0-47.0) MCV 88.3 fL fL (81.5-99.8) MCH 29.7 pg pg (27.9-34.1) MCHC 33.7 g/dL g/dL (32.4-36.7) RDW 13.2 % % (11.5-15.2) Plt Count 246 10^3/uL 10^3/uL (150-400) MPV 9.5 fL fL (8.7-11.7) Neut % (Auto) 60.2 % % (39.3-74.2) Lymph % (Auto) 30.2 % % (15.0-45.0) [place] % (Auto) 7.2 % % (4.5-13.0) Eos % (Auto) 1.5 % % (0.6-7.6) Baso % (Auto) 0.7 % % (0.3-1.7) Nucleat RBC Rel Count 0.0 % % (0.0-0.2) Absolute Neuts (auto) 3.71 10^3/uL 10^3/uL (1.70-6.50) Absolute Lymphs (auto) 1.86 10^3/uL 10^3/uL (1.00-3.00) Absolute Monos (auto) 0.44 10^3/uL 10^3/uL (0.30-0.80) Absolute Eos (auto) 0.09 10^3/uL 10^3/uL (0.03-0.40) Absolute Basos (auto) 0.04 10^3/uL 10^3/uL (0.02-0.10) Absolute Nucleated RBC 0.00 10^3/uL 10^3/uL (0-0.01) Immature Gran % 0.2 % % (0.0-1.1) Immature Gran # 0.01 10^3/uL 10^3/uL (0.00-0.10) Sodium 146 mEq/L H mEq/L (134-144) Potassium 4.0 mEq/L mEq/L (3.5-5.2) Chloride 106 mEq/L mEq/L (97-110) Carbon Dioxide 25 mEq/l mEq/l (22-31) Anion Gap 15 mEq/L mEq/L (8-16) BUN 22 mg/dL mg/dL (7-23) Creatinine 0.8 mg/dL mg/dL (0.6-1.0) Estimated GFR > 60 Glucose 101 mg/dL H mg/dL (70-100) Calcium 9.8 mg/dL mg/dL (8.5-10.4) Total Bilirubin 0.1 mg/dL mg/dL (0.1-1.4) Conjugated Bilirubin 0.1 mg/dL mg/dL (0.0-0.5) Unconjugated Bilirubin 0.0 mg/dL mg/dL (0.0-1.1) AST 18 IU/L IU/L (14-46) ALT 30 IU/L IU/L (9-52) Alkaline Phosphatase 85 IU/L IU/L (38-126) Total Protein 6.4 g/dL g/dL (6.3-8.2) Albumin 3.9 g/dL g/dL (3.5-5.0) Lipase 282 IU/L IU/L (23-300) Urine Color RED Urine Appearance MODERATELY TURBID Urine pH 7.0 (5.0-7.5) Ur Specific [place] 1.016 (1.002-1.030) Urine Protein NEGATIVE (NEGATIVE) Urine Ketones NEGATIVE (NEGATIVE) Urine Blood NEGATIVE (NEGATIVE) Urine Nitrate NEGATIVE (NEGATIVE) Urine Bilirubin NEGATIVE (NEGATIVE) Urine Urobilinogen NEGATIVE EU EU (0.2-1.0) Ur Leukocyte Esterase NEGATIVE (NEGATIVE) Urine Glucose NEGATIVE (NEGATIVE) Medications Given: Discontinued Medications Hydromorphone HCl (Dilaudid) 1 mg IVP EDNOW ONE Stop: 06/26/17 23:34 Last Admin: 06/26/17 23:59 Dose: 1 mg Sodium Chloride (Ns) 1,000 mls @ 0 mls/hr IV EDNOW ONE; Wide Open PRN Reason: Protocol Stop: 06/26/17 23:34 Last Admin: 06/26/17 23:59 Dose: 1,000 mls Ondansetron HCl (Zofran) 4 mg IVP EDNOW ONE Stop: 06/26/17 23:34 Last Admin: 06/26/17 23:59 Dose: 4 mg Departure - Departure Disposition: Home, Routine, Self-Care Clinical Impression: Abdominal pain Qualifiers: Abdominal location: unspecified location Qualified Code(s): R10.9 - Unspecified abdominal pain Condition: Good Instructions: Abdominal Pain (ED) Referrals: NONE *PRIMARY CARE P,. [Primary Care Provider] - As per Instructions
[2017-06-26] MEDS ORDERED: NS 1,000 ML IV ONE (23:33)
[2017-06-26] MEDS ORDERED: ONDANSETRON 4 MG/2 ML VIAL IVP ONE (23:33)
[2017-06-26] MEDS ORDERED: HYDROmorphONE/DILAUDID 1 MG/ML INJ IVP ONE (23:33)
[2017-06-26 23:40] LABS: COLOR RED; LEUKOCYTE ESTERASE,URINE NEGATIVE (NEGATIVE); NITRITE,URINE NEGATIVE (NEGATIVE)
[2017-06-27 00:04] LABS: % IMMATURE GRANULYOCYTES 0.2 % (0.0-1.1); ABSOLUTE IMMATURE GRANULOCYTES 0.01 10^3/uL (0.00-0.10); ADD DIFF? NO; ADD MORPH? NO; ADD SCAN? NO; ATYPICAL LYMPHOCYTE FLAG 0 (0-99); FRAGMENT RBC FLAG 0 (0-99); HEMATOCRIT 38.6 % (38.0-47.0); LEFT SHIFT FLG 0 (0-99); LIPEMIA HEMOLYSIS FLAG 80 (0-99); MEAN CELL HEMOGLOBIN 29.7 pg (27.9-34.1); MEAN CELL HEMOGLOBIN CONCENTR. 33.7 g/dL (32.4-36.7); MEAN CELL VOLUME 88.3 fL (81.5-99.8); MEAN PLATELET VOLUME 9.5 fL (8.7-11.7); PLATELET CLUMPS FLAG 0 (0-99); PLATELET COUNT 246 10^3/uL (150-400); RED BLOOD CELL COUNT 4.37 10^6/uL (4.18-5.33); RED CELL DISTRIBUTION WIDTH 13.2 % (11.5-15.2)
[2017-06-27 00:14] LABS: ALANINE AMINOTRANSFERASE 30 IU/L (9-52); ALBUMIN 3.9 g/dL (3.5-5.0); ALKALINE PHOSPHATASE 85 IU/L (38-126); ANION GAP 15 mEq/L (8-16); ASPARTATE AMINOTRANSFERASE 18 IU/L (14-46); BILIRUBIN,TOTAL 0.1 mg/dL (0.1-1.4); BILIRUBIN-CONJUGATED 0.1 mg/dL (0.0-0.5); CALCIUM 9.8 mg/dL (8.5-10.4); CARBON DIOXIDE 25 mEq/l (22-31); CHLORIDE 106 mEq/L (97-110); CREATININE 0.8 mg/dL (0.6-1.0); GLOMERULAR FILTRATION RATE > 60; GLUCOSE 101 mg/dL (70-100); SODIUM 146 mEq/L (134-144); TOTAL PROTEIN 6.4 g/dL (6.3-8.2)
[2017-06-27 01:21] VITALS: BP 109/74; PULSE 103; RESP 18; TEMP 98.2; O2SAT 94
== END 2017-06-27 01:20 | disposition home or self-care (01) ==
DX: R10.9 Unspecified abdominal pain (principal); J45.909 Unspecified asthma, uncomplicated; E86.9 Volume depletion, unspecified; Z90.49 Acquired absence of other specified parts of digestive tract
CPT/HCPCS: 96374; J1170; J2405

== ENCOUNTER 2017-12-14 17:32 | Observation (INO) | payer MEDICAID ==
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
[2017-12-14] MEDS ORDERED: NS 1,000 ML IV ONE ×2 (17:58→21:33)
[2017-12-14] MEDS ORDERED: LORazepam 2 MG/ML INJ IVP ONE (17:59)
[2017-12-14 19:13] LABS: PLATELET COUNT 263 10^3/uL (150-400)
--- NOTE | 2017-12-14 19:16 | CPEKG ---
Heart Rate: 104 RR Interval: 577 P-R Interval: 176 QRSD Interval: 78 QT Interval: 360 QTC Interval: 474 P [place]: 47 QRS [place]: 33 T Wave [place]: 26 EKG Severity - BORDERLINE ECG - EKG Impression: SINUS TACHYCARDIA EKG Impression: PROBABLE LEFT ATRIAL ABNORMALITY EKG Impression: POOR R WAVE PROGRESSION, CONSIDER ANTERIOR WALL IA VS LEAD PLACEMENT Electronically Signed By: Miguel Yoon 15-Dec-2017 11:56:53
[2017-12-14] MEDS ORDERED: ONDANSETRON 4 MG/2 ML VIAL IVP ONE (19:28)
[2017-12-14] MEDS ORDERED: OXYCODONE/APAP 5/325 TAB PO ONE (20:31)
[2017-12-14] MEDS ORDERED: OXYCODONE/APAP 5/325MG PREPACK#4 BTL TAKEHOME ONE (20:31)
[2017-12-14] MEDS ORDERED: ONDANSETRON 4 MG/2 ML VIAL IVP PRN (22:51)
[2017-12-14] MEDS ORDERED: ACETAMINOPHEN 325 MG TAB PO PRN (22:51)
[2017-12-14] MEDS ORDERED: LORazepam 0.5 MG TAB PO PRN (22:51)
[2017-12-14] MEDS ORDERED: OXYCODONE/APAP 5/325 TAB PO PRN (22:51)
[2017-12-14] MEDS ORDERED: NS 1,000 ML IV SCH (23:00)
[2017-12-15] MEDS: ONDANSETRON DISINTEGRATING 4 MG TAB PO PRN ×2 (03:01→10:54)
--- NOTE | 2017-12-15 10:05 | GHP ---
[f rep st] HISTORY AND PHYSICAL DATE OF ADMISSION: 12/14/2017 PRIMARY CARE PROVIDER: Unlisted. SOURCE: Patient provides history, is a fair historian. EMR was reviewed and case discussed with ED provider. CHIEF COMPLAINT: Syncope and right ankle pain. HISTORY OF PRESENT ILLNESS: This is a 52-year-old female with past medical history significant for chronic pancreatitis, abdominal hernia, peptic ulcer disease, history of colonic polyps with recent attempted colonoscopy, presents to the emergency department today following a syncopal episode. The patient reports that she recently underwent attempt at colonoscopy but was intolerant of the prep. She did report violent nausea and vomiting with development of epigastric pain that was diagnosed as abdominal hernia. The patient reports that she has had persistent nausea. She went to the bathroom yesterday and reports that she developed lightheadedness and blacked out. She states that she woke up with right knee pain and right ankle pain. She denies any chest pain, palpitations, shortness of breath, or vertiginous type symptoms. The patient reports that she has had limited oral intake in the last several days following the prep due to persistent nausea. The patient's vitals were found to be stable in the emergency department. She underwent imaging of her right lower extremity including knee, ankle, and foot. She was found to have small, nondisplaced bilateral bimalleolar fractures. She was placed into a splint and reports that she was unable to stand due to her pain. The patient reports excruciating pain in her right foot, and she has persistently requested IV narcotics only. She has refused to do a trial of oral or IM or subcutaneous pain medications. REVIEW OF SYSTEMS: GENERAL: No fevers, chills. SKIN: No rash. The patient reports some abrasion to her right knee. Otherwise, no other rashes, sores. ENT: Patient reports some hoarseness following her endoscopy a few days ago. She denies any nasal discharge or sore throat. EYES: No acute changes in vision or ocular pain. CV: No chest pain or palpitations. RESPIRATORY: No shortness of breath or cough. GI: See HPI. : No dysuria or hematuria. MUSCULOSKELETAL: Patient complains of right ankle pain severe. NEURO: Patient denies any numbness, tingling in her distal extremities. She did have a headache that has since resolved. PSYCH: Patient denies any anxiety or depression, but she reports she has increased stress due to pain. ALLERGIES: Fentanyl, NSAIDs, Toradol, penicillin, sulfa, Phenergan. Patient reports that she developed dyskinesia with Phenergan, and she also has a history of peptic ulcers, unable to take NSAIDs. HOME MEDICATIONS: Ranitidine, Protonix, and unlisted PTSD medication. PAST MEDICAL HISTORY: Significant for hiatal hernia, chronic pancreatitis, colonoscopy. When asked patient regarding anxiety or depression, she denied any psychiatric issues. PAST SURGICAL HISTORY: Significant for ERCP with biliary stent, colonoscopy, EGD, laparoscopic cholecystectomy, and ovarian cystectomy. FAMILY HISTORY: Mother with polyps. Father with IL age 50s. SOCIAL HISTORY: Patient lives alone. She occasionally stays with her father in [place]. She does not drink, smoke, or utilize any illicit drugs or marijuana. CODE STATUS: Full. PHYSICAL EXAMINATION: VITAL SIGNS: Upon arrival from the emergency department , blood pressure 118/83, heart rate 100, respiratory rate 20, O2 sat 100% on room air with temperature 36.5. Vitals current at time of interview: Blood pressure is 103/66, heart rate is 97, respiratory rate 18, O2 sat is 97% on 2 L by nasal cannula, temperature 36. GENERAL: No acute distress. Pleasant adult female, is lying quietly in bed, does appear fatigued and ill but nontoxic. HEAD: Normocephalic, atraumatic. EYES: Extraocular muscles are grossly intact. Pupils equal, round, and symmetric. No scleral icterus or conjunctival injection. ENT: Mucous membranes appear moist. No oropharyngeal erythema or exudates. NECK: Supple. Trachea midline. CV: Regular rate and rhythm. No murmurs, rubs, or gallops appreciated. Slightly tachy in the 90s. CHEST: No chest wall tenderness to palpation. RESPIRATORY: Unlabored breathing. Lungs diminished at the bases with decreased inspiratory effort. No wheezes, rales, or rhonchi. ABDOMEN: Positive bowel sounds. Soft. Patient does complain of some tenderness to palpation over the epigastric incision site. No palpable hernia. No rebound or guarding appreciated. Abdomen slightly distended but soft. : No suprapubic tenderness to palpation. No Nassar catheter in place. EXTREMITIES: Patient without any cyanosis, clubbing, or edema appreciated. Right lower extremity is in a splint. Toes with good cap refill and sensation. NEURO: Grossly nonfocal. No facial drooping. Moves upper extremities. Able to move her toes in the splint. PSYCH: Patient appears slightly anxious. Patient asked several times for IV narcotics. She becomes upset when I advise her we will treat her nausea , and her small bimalleolar fractures do not indicate IV narcotics. She becomes upset and just requests her antiemetics. I do offer patient alternatives including Ativan, muscle relaxants, and other antiemetics which patient declines. IMAGING STUDIES: Images and reports reviewed myself. Right knee: Negative for acute. Right ankle 3-view: Equivocal distal fibular fracture, marked lateral soft tissue swelling. Foot x-ray without any fractures, but distal fibula and medial malleolus fractures are noted. EKG reviewed myself, showing sinus tachycardia in the 100s, left atrial abnormality, nonspecific ST wave changes, QRS in anterior leads. ASSESSMENT AND PLAN: This is a 52-year-old female with a history of chronic pain, abdominal hernia, peptic ulcer disease, who presents to the emergency department follow a syncopal/presyncopal episode and complains of knee pain. She has a bimalleolar fracture, is nondisplaced, in a splint. Dr. Borden was consulted from the emergency department and will evaluate the patient this morning. 1. Acute pain due to trauma. Pain is reported to be excessive. The patient has requested multiple times for intravenous narcotic therapy. I advised the patient that this is not indicated at this time for the level of fracture. I did offer her alternative oral medications since she has nausea without any vomiting, has been tolerating sips of fluids. I advised that we will try to focus on her nausea and subsequently can offer oral medications only. 2. Presyncopal episode. Patient has reported nausea, vomiting, and abdominal hernia with severe pain. Will check orthostatics. She is slightly tachycardic. Continue intravenous fluids, encourage oral intake in addition. Patient denied any chest pain, palpitations, or shortness of breath. Will try to mobilize as tolerated. Pain control as noted above. 3. History of peptic ulcer disease. Continue proton pump inhibitor therapy. 4. History of chronic pancreatitis. Patient reports that her current symptoms are controlled. 5. Fluid, electrolytes, nutrition. Continue intravenous fluids. Electrolyte monitoring, replacement if needed. Advance diet as tolerated. 6. Prophylaxis. Sequential compression devices. Anticipate short hospital stay, mobilize as quickly as possible, and consider anticoagulation if patient should end up staying additional day. 7. Code status is full. DISPOSITION: Patient admitted to observation status on the medical floor pending orthopedic evaluation and recommendations. /[id number]/MODL MTDD
[2017-12-15 12:01] VITALS: BP 103/67
--- NOTE | 2017-12-15 14:48 | PDIAF ---
- Diagnosis Diagnosis: ankle fracture Code Status: Full Code - Medication Management Discharge Medications: Medications to Continue on Transfer Pantoprazole Sodium [Protonix 40mg (*)] 40 mg PO HS 12/14/17 [Last Taken ] Ranitidine HCl 150 mg PO BID PRN 12/14/17 [Last Taken Unknown] Acetaminophen [Tylenol 325mg (*)] 650 mg PO Q4HRS PRN tab 12/15/17 [Last Taken Unknown] oxyCODONE/APAP 5/325 [Percocet 5/325 (*)] 1 tab PO Q4H PRN #14 tab 12/15/17 [ Last Taken Unknown] Discharge Medications: Refer to the Discharge Home Medication list for PRN reason. - Orders Services needed: Home Care, Registered Nurse, Physical Therapy Home Care Face to Face: I certify that this patient was under my care and that I had the required [id number] encounter meeting the encounter requirements on the discharge day. My findings support the fact that the patient is homebound as defined in Home Care Face to Face Continued: CMS Chapter 7 Medicare Benefits Manual 30.1.1 , The condition of the patient is such that there exists a normal inability to leave home and consequently, leaving home would require a considerable and taxing effort. Diet Recommendation: no restrictions on diet Diet Texture: Regular Texture Diet Additional Instructions: 1. Completely non-weight bearing x 6 weeks 2. Splint and crutches in place at all times until seen by orthopedist in 1 week 3. Ice and elevate often Schedule with Dr. Borden in 1week - Follow Up Care Current Providers and Referrals: Jim Borden MD [Medical Doctor] - As per Instructions
[2017-12-15] MEDS ORDERED: oxyCODONE IR 5 MG TAB PO PRN (15:42)
--- NOTE | 2017-12-15 16:12 | GCON ---
[f rep st] CONSULTATION ORTHOPEDIC CONSULTATION DATE OF CONSULTATION: 12/15/2017 REASON FOR CONSULTATION: Right ankle fracture. HISTORY OF PRESENT ILLNESS: The patient is a 52-year-old female who had a syncopal episode yesterday evening and fell and sustained a nondisplaced bimalleolar ankle fracture. Difficult to visualize these fracture lines on plain imaging. She was admitted to the hospital for overnight pain control. She has had some problems with pancreatitis in the past and is requesting IV pain medication PAST MEDICAL HISTORY: Pancreatitis. HOME MEDICATIONS: Ranitidine, Protonix. ALLERGIES: See her attached allergy sheet. They are numerous. 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 She lives with her dad who she helps care for. Apparently, he has multiple medical problems as well up in [place], and plan on discharge is to return to her home up in [place]. REVIEW OF SYSTEMS: No shortness of breath, chest pain. Otherwise, review of systems unremarkable. PHYSICAL EXAMINATION: VITAL SIGNS: Today on the floor: Blood pressure is 103/ 67, heart rate 99, respiratory rate is 18. She is on room air and saturating 93 %. GENERAL: Alert and oriented x3. HEENT: Normocephalic, atraumatic. Extraocular muscles intact. NECK: Supple. There is no lymphadenopathy. No JVD. CHEST: Clear to auscultation. CARDIOVASCULAR: Regular rate and rhythm. ABDOMEN: Soft, nontender, nondistended. EXTREMITIES: Focused on the right extremity, she is in a lower extremity splint that is fitting appropriately. She really does not much swelling at this point. She is moving her toes well. Brisk capillary refill to all the tips of her toes. Sensation to light touch is intact. IMAGING: X-rays, both foot and ankle. She has a very faint medial malleolus fracture that is difficult to visualize on the ankle films. You can see these better on the foot films. She has a nondisplaced distal fibular fracture, again difficult to visualize on plain imaging. No other acute bony abnormalities are seen. ASSESSMENT: Nondisplaced bimalleolar ankle fracture. PLAN: Patient and I spent 15 minutes reviewing her x-ray findings, clinical exam findings. This can be best managed non operatively. I encouraged her to switch over to p.o. pain medications and use nausea medicines if needed so that she can be able to manage this at home. We will continue the splint for 1 week. I will re-x-ray in the office in a week. Along as her alignment stays good and swelling is improved, we can proceed with cast immobilization. She will be nonweightbearing for 4 to 6 weeks and she understands this. I did explain to her unlikely chance that this would displace, it might need operative fixation, but at this point, we will proceed with non-operative treatment of this. /[id number]/MODL MTDD
--- NOTE | 2017-12-15 16:16 | ASMTLACE ---
LACE Length of stay for Answers: 2 days current admission Acuity / Level of Answers: No Care: Did the patient have an inpatient admission? Comorbidities - select Answers: Other Notes: Peptic ulcer disease all that apply # of Emergency department Answers: 1-2 visits in the last 6 months Social determinants Answers: Lack of community resources and/or lack of social support (no pcp, lives alone, transportation, nimco d) Score: 8 Date Signed: 12/15/2017 04:15 PM Electronically Signed By:Maryan Humphrey RN
--- NOTE | 2017-12-15 16:20 | ASMTCMCOM ---
CM Note CM Note Notes: Discussed with RN and MD. Met with patient re: discharge plan of care. According to RN, patient has been cleared by PT for use of walker or crutches - walker provided. 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 Patient states she will be staying at her dad's come but absolutely cannot discharge there today. Patient has been medically cleared for discharge, does not need to be inpatient this evening. CM went in and explained this with MD, patient agreed to leave via [facility] transport to an address in [place]. Patient refuses home care and does not want her father's address to be given to anyone. Scripts have been sent to [facility] to be filled. Plan: Independent, refuses assistance. Date Signed: 12/15/2017 04:20 PM Electronically Signed By:Maryan Humphrey RN
--- NOTE | 2017-12-15 18:02 | GDS ---
[f rep st] DISCHARGE SUMMARY DISCHARGE DIAGNOSES: Include: 1. Acute right distal fibula and medial malleolar fractures. 2. Chronic pancreatitis. 3. History of peptic ulcer disease. HISTORY OF PRESENT ILLNESS: A 52-year-old female with a history of chronic pain and abdominal hernia with peptic ulcers who presents with complaints of knee pain after a presyncopal episode. For detai ls of the patient's initial presentation, please see the history and physical dated 12/14/2017. CONSULTATIVE SERVICES: Include Dr. Borden. PROCEDURES: None. HOSPITAL COURSE: Nondisplaced bimalleolar ankle fracture on the right. This is a non-operative frac ture. Patient has been splinted and will remain in that splint for 1 week's time. She is nonweightb earing on this extremity. Will follow in the outpatient setting with Dr. Borden, at which point sh pauline will have repeat imaging and likely be casted. FOLLOWUP APPOINTMENT: Patient has been instructed to follow in the outpatient setting with Dr. Chaparro are in 1 week. PENDING STUDIES: At the time of this dictation are none. MEDICATIONS AT TIME OF DISPOSITION: Please reference the medication reconciliation printed on 2017. TIME SPENT: I spent greater than 30 minutes in the planning and coordination of this discharge. /[id number]/MODL
== END 2017-12-15 17:19 | disposition home or self-care (01) ==
LOC: MERGE 21:52 → F3N 23:17
PROVIDERS: ADMIT Family Medicine; ATTEND Hospitalist
PROC: 2W3LX1Z Immobilization of Right Lower Extremity using Splint (ICD-10-PCS; principal; 2017-12-14)
DX: S82.844A Nondisplaced bimalleolar fracture of right lower leg, initial encounter for closed fracture (principal); R55 Syncope and collapse; K86.1 Other chronic pancreatitis; E86.9 Volume depletion, unspecified; K44.9 Diaphragmatic hernia without obstruction or gangrene; G89.29 Other chronic pain; R40.2412 Glasgow coma scale score 13-15, at arrival to emergency department; J45.909 Unspecified asthma, uncomplicated; W18.11XA Fall from or off toilet without subsequent striking against object, initial encounter; Y92.012 Bathroom of single-family (private) house as the place of occurrence of the external cause; Y99.8 Other external cause status; Z87.11 Personal history of peptic ulcer disease; Z86.010 Personal history of colon polyps; Z82.49 Family history of ischemic heart disease and other diseases of the circulatory system; Z88.0 Allergy status to penicillin; Z88.2 Allergy status to sulfonamides
CPT/HCPCS: 27808; 73564; 73610; 73630; 93005; 96361; 96374; 96375; 97161; 99285; G0378; J2060; J2270; J2405

== ENCOUNTER 2018-05-04 18:49 | Emergency (ER) | payer MEDICAID ==
[2018-05-04] MEDS ORDERED: NS 1,000 ML IV ONE (19:28)
[2018-05-04] MEDS ORDERED: IOPAMIDOL (ISOVUE-300) 100 ML BTL ONE (19:30)
--- NOTE | 2018-05-04 19:33 | EDPHY ---
H & P Stated Complaint: upper abd pain n/v "feels like my pancreatitis" Time Seen by Provider: 05/04/18 19:27 HPI/ROS: HPI: This is a 52-year-old female who presents with Chief Complaint: upper abd pain n/v "feels like my pancreatitis" Location: Epigastric Quality: Pain Duration: 2 days Signs and Symptoms: no fever, + nausea, + vomiting, no hematemesis, no blood in stool, no abdominal bloating, no diarrhea, no back pain, no urinary symptoms, no vaginal bleeding/discharge, no indigestion, no chest pain, no shortness of breath Timing: Acute on chronic Severity: 7 out of 10 Context: Patient has a history of peptic ulcer disease, pancreatitis-biliary type status post stenting, cholecystectomy presents with epigastric radiating into her back sharp constant pain that started 2 days ago. She complains of nausea and 1 episode of vomiting in 2 days. She believes that she is having a "pancreatic flare." She sees Dr. 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 She reports that she is not on any pain contract does not take pain medications regularly. She has not had"flare" in over 6 months. She house sits in [place] and came to the emergency room as the pain was"too severe " to drive back home. Patient has a midline her left upper extremity to receive IV fluids secondary to propensity for dehydration. Denies alcohol use. Modifying Factors: Pepcid with no relief Comment: ROS: A comprehensive 10 system review of systems is otherwise negative aside from elements mentioned in the history of present illness. MEDICAL/SURGICAL/SOCIAL HISTORY: Medical history: upper abd pain n/v "feels like my pancreatitis" Surgical history: Pancreatic stent, cholecystectomy Social history: Never smoked Family history noncontributory. CONSTITUTIONAL: Polite and cooperative, nontoxic appearing middle-aged white female, awake and alert, no obvious distress HEENT: Atraumatic and normocephalic, PERRL, EOMI. Nares patent; no rhinorrhea; no nasal mucosal edema. Tympanic membranes clear. Oropharynx clear, no exudate and moist pink mucosa. Airway patent. No lymphadenopathy. No meningismus. Cardiovascular: Normal S1/S2, regular rate, regular rhythm, without murmur rub or gallop. PULMONARY/CHEST: Symmetrical and nontender. Clear to auscultation bilaterally. Good air movement. No accessory muscle usage. ABDOMEN: Soft, nondistended, moderate epigastric tenderness, no rebound, no guarding, no peritoneal signs, no masses or organomegaly. No CVAT. EXTREMITIES: 2/2 pulses, strength 5/5, midline left upper extremity noted- dressing in place. no deformities, no clubbing, no cyanosis or edema. NEUROLOGICAL: no focal neuro deficits. GCS 15. SKIN: Warm and dry, no erythema. no rash. Good capillary refill. Source: Patient Exam Limitations: No limitations - Personal History LMP (Females 10-55): Unknown Tetanus Vaccine Date: 2016 - Medical/Surgical History Hx Asthma: No Hx Chronic Respiratory Disease: No Hx Diabetes: No Hx Cardiac Disease: No Hx Renal Disease: No Hx Cirrhosis: No Hx Alcoholism: No Hx HIV/AIDS: No Hx Splenectomy or Spleen Trauma: No Other PMH: hernia. pancreatitis - Social History Smoking Status: Never smoked Constitutional: Initial Vital Signs Temperature (C) 36.8 C 05/04/18 18:53 Heart Rate 102 H 05/04/18 18:53 Respiratory Rate 16 05/04/18 18:53 Blood Pressure 117/68 05/04/18 18:53 O2 Sat (%) 97 05/04/18 18:53 O2 Delivery Mode Room Air Allergies/Adverse Reactions: Penicillins Allergy (Severe, Verified 05/07/17 21:52) Dyspnea Sulfa (Sulfonamide Antibiotics) Allergy (Severe, Verified 05/07/17 21:52) Hives fentanyl Allergy (Intermediate, Verified 05/07/17 21:52) Other-Enter Comments ketorolac tromethamine [From Toradol] Allergy (Intermediate, Verified 05/07/17 21:52) Other-Enter Comments promethazine Allergy (Intermediate, Verified 05/07/17 21:52) Other-Enter Comments ketorolac [From Toradol] Allergy (Verified 12/14/17 17:37) Home Medications: Medication Instructions Recorded Ondansetron Odt [Zofran Odt 4 mg 4 mg PO Q4 PRN #12 tab 05/04/18 (*)] Protonix 05/04/18 Medical Decision Making - Diagnostics Imaging Results: Imaging Impressions Abdomen CT 05/04/18 19:28 Impression: 1. No evidence of acute pancreatitis or acute intraabdominal inflammatory process. 2. Mild dilatation of the pancreatic duct and bile ducts is unchanged since September 2015. No evidence of common bile duct stone or pancreatic duct stone. 3. Normal bowel pattern. Findings discussed with Emergency Department physician, Karishma Pelayo PA-C, at 2054 on May 04, 2018. E:RH/amm ED Course/Re-evaluation: Vital signs reviewed upon arrival in show mild tachycardia. Afebrile. Laboratory studies, IV fluids, IV medications, CT abdomen and pelvis scan ordered Given 1 L normal saline, IV Protonix 40 mg, IV Dilaudid 1 mg, IV Zofran 4 mg 2039: Laboratory studies reviewed. No signs of leukocytosis/anemia/platelet dysfunction/ROSETTE/elevated LFTs/electrolyte imbalance/pancreatitis. Notified by [employer] that patient requesting more pain medication Moderate radiologist who reported that CT abdomen and pelvis scan shows no signs of pancreatitis, no common bile duct stone, no obstruction, no appendicitis, unchanged when compared to the exam in 2015. 2107: Reassessed patient who reports moderate relief of symptoms. Requesting laboratory studies be printed out and the studies provided to patient. Advised patient to follow up with Dr. Willis in 2 weeks as already scheduled for EGD. This patient was seen under the supervision of my secondary supervising physician. I evaluated care for this patient independently. Discussed this patient with Dr. Peterson. Differential Diagnosis: Abdominal pain including but not limited to appendicitis, cholecystitis, pancreatitis, peptic ulcer disease, gastritis and urinary tract infection. - Data Points Laboratory Results: Laboratory Results 05/04/18 19:52 05/04/18 19:52 05/04/18 05/04/18 05/04/18 19:52 19:52 19:52 WBC 5.95 10^3/uL 10^3/uL (3.80-9.50) RBC 4.87 10^6/uL 10^6/uL (4.18-5.33) Hgb 14.1 g/dL g/dL (12.6-16.3) Hct 42.6 % % (38.0-47.0) MCV 87.5 fL fL (81.5-99.8) MCH 29.0 pg pg (27.9-34.1) MCHC 33.1 g/dL g/dL (32.4-36.7) RDW 13.2 % % (11.5-15.2) Plt Count 265 10^3/uL 10^3/uL (150-400) MPV 9.0 fL fL (8.7-11.7) Neut % (Auto) 56.5 % % (39.3-74.2) Lymph % (Auto) 32.9 % % (15.0-45.0) [place] % (Auto) 7.9 % % (4.5-13.0) Eos % (Auto) 1.8 % % (0.6-7.6) Baso % (Auto) 0.7 % % (0.3-1.7) Nucleat RBC Rel Count 0.0 % % (0.0-0.2) Absolute Neuts (auto) 3.36 10^3/uL 10^3/uL (1.70-6.50) Absolute Lymphs (auto) 1.96 10^3/uL 10^3/uL (1.00-3.00) Absolute Monos (auto) 0.47 10^3/uL 10^3/uL (0.30-0.80) Absolute Eos (auto) 0.11 10^3/uL 10^3/uL (0.03-0.40) Absolute Basos (auto) 0.04 10^3/uL 10^3/uL (0.02-0.10) Absolute Nucleated RBC 0.00 10^3/uL 10^3/uL (0-0.01) Immature Gran % 0.2 % % (0.0-1.1) Immature Gran # 0.01 10^3/uL 10^3/uL (0.00-0.10) Sodium 140 mEq/L mEq/L (135-145) Potassium 3.6 mEq/L mEq/L (3.3-5.0) Chloride 102 mEq/L mEq/L (97-110) Carbon Dioxide 27 mEq/l mEq/l (22-31) Anion Gap 11 mEq/L mEq/L (6-14) BUN 17 mg/dL mg/dL (7-23) Creatinine 0.7 mg/dL mg/dL (0.6-1.0) Estimated GFR > 60 Glucose 118 mg/dL H mg/dL (70-100) Calcium 10.0 mg/dL mg/dL (8.5-10.4) Total Bilirubin 0.3 mg/dL mg/dL (0.1-1.4) Conjugated Bilirubin 0.2 mg/dL mg/dL (0.0-0.5) Unconjugated Bilirubin 0.1 mg/dL mg/dL (0.0-1.1) AST 22 IU/L IU/L (14-46) ALT 22 IU/L IU/L (9-52) Alkaline Phosphatase 98 IU/L IU/L (38-126) Total Protein 7.5 g/dL g/dL (6.3-8.2) Albumin 4.5 g/dL g/dL (3.5-5.0) Lipase 240 IU/L IU/L (23-300) Beta HCG, Qual NEGATIVE Medications Given: Discontinued Medications Hydromorphone HCl (Dilaudid) 1 mg IVP EDNOW ONE Stop: 05/04/18 19:35 Last Admin: 05/04/18 19:45 Dose: 1 mg Sodium Chloride (Ns) 1,000 mls @ 0 mls/hr IV EDNOW ONE; Wide Open PRN Reason: Protocol Stop: 05/04/18 19:29 Last Admin: 05/04/18 19:45 Dose: 1,000 mls Ondansetron HCl (Zofran) 4 mg IVP EDNOW ONE Stop: 05/04/18 19:35 Last Admin: 05/04/18 19:45 Dose: 4 mg Pantoprazole Sodium (Protonix) 40 mg IVP EDNOW ONE Stop: 05/04/18 19:36 Last Admin: 05/04/18 19:45 Dose: 40 mg Departure - Departure Disposition: Home, Routine, Self-Care Clinical Impression: Chronic pancreatitis Qualifiers: Pancreatitis type: unspecified pancreatitis type Qualified Code(s): K86.1 - Other chronic pancreatitis Gastritis without bleeding Qualifiers: Gastritis type: unspecified gastritis Chronicity: chronic Qualified Code(s): K29.50 - Unspecified chronic gastritis without bleeding Condition: Good Instructions: Gastritis (ED), Pancreatitis (ED), Diet for Stomach Ulcers and Gastritis (ED) Additional Instructions: Consume a minimum of 8-10 glasses of water or electrolyte fluid replacement drinks that include Gatorade, Powerade, Pedialyte. Eat a bland diet for the next 48 hours and then slowly advance as tolerated. Take Zofran 1 tab every 4 hours as needed for nausea, vomiting. Keep follow-up appointment with Dr. Willis in 2 weeks. Return to the Emergency Room if symptoms do not resolve in the next 48-72 hours , you spike a fever > 102 F, or experience intractable abdominal pain/nausea/ vomiting. Referrals: PCP Not In,Dictionary [Medical Doctor] - As per Instructions (Dr. Willis, gastroenterology) Prescriptions: Ondansetron Odt [Zofran Odt 4 mg (*)] 4 mg PO Q4 PRN #12 tab PRN Reason: Nausea/Vomiting, Use 1st
[2018-05-04] MEDS ORDERED: HYDROmorphONE/DILAUDID 2 MG/ML INJ IVP ONE (19:34)
[2018-05-04] MEDS ORDERED: ONDANSETRON 4 MG/2 ML VIAL IVP ONE (19:34)
[2018-05-04] MEDS ORDERED: PANTOPRAZOLE SODIUM 40 MG VIAL IVP ONE (19:35)
[2018-05-04] MEDS ORDERED: PANTOPRAZOLE SODIUM 40 MG VIAL ONE (19:41)
[2018-05-04 20:04] LABS: PLATELET COUNT 265 10^3/uL (150-400)
[2018-05-04 21:31] VITALS: BP 108/70
== END 2018-05-04 21:47 | disposition home or self-care (01) ==
DX: K86.1 Other chronic pancreatitis (principal); K29.50 Unspecified chronic gastritis without bleeding; E86.9 Volume depletion, unspecified
CPT/HCPCS: 96374; J1170; J2405; Q9967

== ENCOUNTER 2018-08-14 22:32 | Emergency (ER) | payer MEDICAID ==
[2018-08-14] MEDS ORDERED: ONDANSETRON 4 MG/2 ML VIAL ONE (23:26)
[2018-08-14] MEDS ORDERED: ONDANSETRON 4 MG/2 ML VIAL IVP ONE (23:28)
[2018-08-14 23:36] LABS: PLATELET COUNT 276 10^3/uL (150-400)
[2018-08-14] MEDS ORDERED: FAMOTIDINE 20 MG/NACL 50 ML IV ONE (23:47)
[2018-08-14] MEDS ORDERED: NS 1,000 ML IV ONE (23:47)
[2018-08-15] MEDS ORDERED: KETAMINE 500 MG/10 ML VIAL IV ONE (00:15)
[2018-08-15] MEDS ORDERED: ONDANSETRON 4 MG/2 ML VIAL IVP ONE (00:44)
--- NOTE | 2018-08-15 01:36 | EDPHY ---
H & P Stated Complaint: upper abd pain with vomiting Time Seen by Provider: 08/14/18 23:01 HPI/ROS: HPI The patient presents with nausea, vomiting, abdominal pain. Symptoms began about 2 days ago and have become progressively worse. She initially developed nausea which she attributed to her pancreatitis which she says she has chronically. She tried to manage her symptoms at home, however developed vomiting and then left upper quadrant abdominal pain which is aching, constant, moderate in severity. She has had multiple prior episodes in the past which are similar.. REVIEW OF SYSTEMS 10 systems were reviewed and negative with the exception of the elements mentioned in the history of present illness. PMHx: History of recurrent chronic pancreatitis Soc Hx: Housed PHYSICAL General Appearance: Alert, no distress Eyes: Pupils equal and round no pallor or injection ENT, Mouth: Mucous membranes moist Respiratory: There are no retractions, lungs are clear to auscultation Cardiovascular: Regular rate and rhythm Gastrointestinal: Abdomen is soft and non-tender, no masses, bowel sounds normal Neurological: A&O, moves all extremities Skin: Warm and dry, no rashes Musculoskeletal: Neck is supple non tender Extremities: symmetrical, full range of motion Psychiatric: Patient is oriented X 3, there is no agitation Source: Patient Exam Limitations: No limitations - Personal History LMP (Females 10-55): Post Menopausal Current Tetanus/Diphtheria Vaccine: Yes Current Tetanus Diphtheria and Acellular Pertussis (TDAP): Yes Tetanus Vaccine Date: 2016 - Medical/Surgical History Hx Asthma: No Hx Chronic Respiratory Disease: No Hx Diabetes: No Hx Cardiac Disease: No Hx Renal Disease: No Hx Cirrhosis: No Hx Alcoholism: No Hx HIV/AIDS: No Hx Splenectomy or Spleen Trauma: No Other PMH: hernia. pancreatitis - Social History Smoking Status: Never smoked Constitutional: Initial Vital Signs Temperature (C) 36.7 C 08/14/18 22:35 Heart Rate 90 08/14/18 22:35 Respiratory Rate 16 08/14/18 22:35 Blood Pressure 121/87 H 08/14/18 22:35 O2 Sat (%) 96 08/14/18 22:35 O2 Delivery Mode Room Air Allergies/Adverse Reactions: Penicillins Allergy (Severe, Verified 08/14/18 22:40) Dyspnea Sulfa (Sulfonamide Antibiotics) Allergy (Severe, Verified 08/14/18 22:40) Hives fentanyl Allergy (Intermediate, Verified 08/14/18 22:40) Other-Enter Comments ketorolac tromethamine [From Toradol] Allergy (Intermediate, Verified 08/14/18 22:40) Other-Enter Comments promethazine Allergy (Intermediate, Verified 08/14/18 22:40) Other-Enter Comments ketamine Allergy (Verified 08/15/18 01:17) Anxiety ketorolac [From Toradol] Allergy (Verified 08/14/18 22:40) Home Medications: Medication Instructions Recorded Ondansetron Odt [Zofran Odt 4 mg 4 mg PO Q4 PRN #12 tab 05/04/18 (*)] Protonix 05/04/18 Medical Decision Making Differential Diagnosis: 52-year-old female with history of chronic pancreatitis and pain presents with 2 days of progressive nausea, vomiting, left upper quadrant abdominal pain. Here, vital signs are stable and patient has mild tenderness. Labs are unremarkable. Patient received IV fluids, antiemetics, medication for pain. I did not give her any narcotics. I did give her dose of ketamine which made her feel anxious. When I explained to her I was not going to give her any opiates, she has to be discharged home. Differential diagnosis includes acute pancreatitis, pain medication seeking behavior, gastroenteritis. - Data Points Laboratory Results: Laboratory Results 08/14/18 22:54 08/14/18 22:54 Medications Given: Discontinued Medications Sodium Chloride (Ns) 1,000 mls @ 0 mls/hr IV EDNOW ONE; Wide Open PRN Reason: Protocol Stop: 08/14/18 23:48 Last Admin: 08/14/18 23:52 Dose: 1,000 mls Famotidine/Sodium Chloride (Pepcid 20 Mg (Premix)) 50 mls @ 200 mls/hr IV EDNOW ONE Stop: 08/15/18 00:01 Last Admin: 08/14/18 23:53 Dose: 50 mls Ketamine HCl (Ketamine) 20 mg IV EDNOW ONE Stop: 08/15/18 00:16 Last Admin: 08/15/18 00:24 Dose: 20 mg Ondansetron HCl (Zofran) 4 mg IVP EDNOW ONE Stop: 08/14/18 23:29 Last Admin: 08/14/18 23:31 Dose: 4 mg Ondansetron HCl (Zofran) 4 mg IVP EDNOW ONE Stop: 08/15/18 00:45 Last Admin: 08/15/18 00:45 Dose: 4 mg Departure - Departure Disposition: Home, Routine, Self-Care Clinical Impression: Left upper quadrant pain, Vomiting Condition: Good Instructions: Pancreatitis (ED) Additional Instructions: Please make sure to drink plenty of fluids. You should return to the emergency department if your worse in any way. We do not give opiate pain medications for chronic conditions in most cases. You did received ketamine today which caused adverse reaction. Referrals: [facility] [Outside] - As per Instructions
[2018-08-15 01:41] VITALS: BP 140/78
== END 2018-08-15 01:40 | disposition home or self-care (01) ==
DX: R11.2 Nausea with vomiting, unspecified (principal); R10.12 Left upper quadrant pain
CPT/HCPCS: 96374; J2405